=== PATIENT | female | born 1955 | race American Indian/Alaskan Native ===

== ENCOUNTER 2020-11-03 13:02 | Emergency (ER) | payer SELFPAY ==
--- NOTE | 2020-11-03 14:52 | Emergency Department Report ---
<STEPHANIE LOCK S - Last Filed: 11/03/20 18:57> ED General Adult HPI - General Chief complaint: Abdominal Pain Stated complaint: ABD PAIN X 10 DAYS Time Seen by Provider: 11/03/20 13:52 - Related Data Previous Rx's Medication Instructions Recorded Last Taken Type Acetaminophen [Non-Aspirin Extra 500 mg PO Q6HR PRN #30 tablet 11/03/20 Unknown Rx Strength] Metoclopramide [Reglan] 10 mg PO QID PRN #30 tablet 11/03/20 Unknown Rx Omeprazole 20 mg PO QDAY #30 tablet. 11/03/20 Unknown Rx Potassium Chloride [K-Dur] 20 meq PO BID #30 tab 11/03/20 Unknown Rx levoFLOXacin [Levaquin] 750 mg PO QDAY #7 tablet 11/03/20 Unknown Rx polyethylene glycoL 3350 [Miralax 17 gm PO QDAY #30 packet 11/03/20 Unknown Rx 3350] Allergies Allergy/AdvReac Type Severity Reaction Status Date / Time No Known Allergies Allergy Unverified 11/03/20 15:07 ED Past Medical Hx - Medications Home Medications: Home Medications Medication Instructions Recorded Confirmed Last Taken Type Acetaminophen [Non-Aspirin Extra 500 mg PO Q6HR PRN #30 tablet 11/03/20 Unknown Rx Strength] Metoclopramide [Reglan] 10 mg PO QID PRN #30 tablet 11/03/20 Unknown Rx Omeprazole 20 mg PO QDAY #30 tablet. 11/03/20 Unknown Rx Potassium Chloride [K-Dur] 20 meq PO BID #30 tab 11/03/20 Unknown Rx levoFLOXacin [Levaquin] 750 mg PO QDAY #7 tablet 11/03/20 Unknown Rx polyethylene glycoL 3350 [Miralax 17 gm PO QDAY #30 packet 11/03/20 Unknown Rx 3350] ED Medical Decision Making - Lab Data Result diagrams: 11/03/20 15:14 11/03/20 15:14 - Radiology Data Radiology results: report reviewed CT ABDOMEN AND PELVIS WITH CONTRAST INDICATION / CLINICAL INFORMATION: acute abd pain 100 ML OMNI 300. TECHNIQUE: Axial CT images were obtained through the a bdomen and pelvis after IV contrast. All CT scans at this location are performed using CT dose reduction for ALARA by means of automated exposure control. COMPARISON: None available. FINDINGS: LOWER CHEST: There is a masslike consolidation in the left lower lobe abutting the pleura measuring 4.3 x 4.3 cm LIVER: Hepatic steatosis without focal liver lesion. GALLBLADDER: Cholecystectomy. BILE DUCTS: Mild intrahepatic ductal dilation is likely secondary to cholecystectomy changes PANCREAS: There is mild stranding around the pancreatic head in the region of the duodenal sweep. SPLEEN: No significant abnormality. ADRENALS: No significant abnormality. RIGHT KIDNEY / URETER: Simple cyst at right upper pole measuring 2 cm. There is a nonobstructing 3 mm stone in the midportion of the right kidney. LEFT KIDNEY / URETER: Simple cyst at left upper pole measuring 1.4 cm STOMACH / SMALL BOWEL: The stomach appears normal. There is mild stranding around the second portion of duodenum. The small bowel is nondilated. COLON: No significant abnormality. APPENDIX: No significant abnormality. PERITONEUM: Trace free fluid in the pelvis. No free air. No fluid collection. LYMPH NODES: No significant adenopathy. AORTA / ARTERIES: Moderate atherosclerotic calcification without acute abnormality. IVC / VEINS: No significant abnormality. URINARY BLADDER: No significant abnormality. REPRODUCTIVE ORGANS: Uterus is absent. No significant adnexal abnormality. ADDITIONAL FINDINGS: Hernia repair changes of the lower midline abdomen. SKELETAL SYSTEM: Left femoral dominick with healed deformity of the proximal left femur. No aggressive osseous lesion. IMPRESSION: 1. Stranding around the pancreatic head and second portion of the duodenum. This could either represent duodenitis or mild pancreatitis. Recommend clinical correlation. No evidence of free air. 2. Incidental left lower lobe masslike consolidation. While this may represent atypical pneumonia, a neoplasm cannot be excluded. Recommend further evaluation as clinically indicated. 3. Punctate nonobstructing stone in the right kidney. 4. Other incidental findings as above. - Medical Decision Making I was signed out this patient by my colleague, Dr. Duggan, to follow-up on the patient's CT of the abdomen and pelvis as well as her urinalysis. The patient comes in with a 4 to 5-day history of some cramping abdominal pain. Labs are reviewed and are mostly unremarkable except for very mild hypokalemia. Ur inalysis came back without signs of urinary tract infection, hematuria, signs of dehydration. I was called by the radiologist regarding the patient's CT results. There is some inflammation seen around the head of the pancreas and/or second portion of the duodenum concerning for mild pancreatitis versus duodenitis. The patient's lipase is seventeen and therefore it appears less likely to be acute pancreatitis, although possibly it could be early pancreatitis without lipase elevation yet. More likely, the patient has some duodenitis. There was also an incidental finding in the left lower lung of some type of consolidation that is concerning for atypical pneumonia versus mass versus other. The patient has no complaints of any chest pain, back pain, shortness of breath, cough. She does not have any fever. Labs did not show any leukocytosis. The patient does not appear in any respiratory or acute distress. She does not appear to have any medical condition that requires admission or surgical intervention. Therefore, the patient will be discharged home with the previous discharge prescriptions written by my colleague, as well as but I have also added a PPI and antibiotics. The patient will be given outpatient referral for gastroenterology regarding her abdominal pain and possible duodenitis, and a referral for pulmonology regarding this left lung consolidation. I spoke to the patient regarding all of her lab and imaging results, as well as the plan for outpatient follow-up, and she understands and agrees to the plan. ED Disposition Clinical Impression: Acute abdominal pain, Lung consolidation, Elevated blood pressure reading, Hypokalemia, Duodenitis Disposition: DC-01 TO HOME OR SELFCARE Is pt being admited?: No Condition: Good Instructions: Lung Mass, Abdominal Pain, Adult, Duodenitis, Community-Acquired Pneumonia, Adult, Hypertension, Adult, Abdominal Pain (ED) Additional Instructions: Please take the pain medication, nausea medication, and MiraLAX as directed. Take the potassium supplementation as directed. Please do not take them for medication for the next 2 days, if patient takes this medication. Please follow-up with your primary care doctor within the next 5 to 7 days for repeat checkup and evaluation. Please have a primary care doctor contact medical records department to follow-up on copies of laboratory studies, radiology studies. Please drink 4 to 6 cups of water per day indefinitely. Please consume plenty of fiber, vegetables, and lean protein. Please return to the emergency room right away with new pain, worsened pain, migration of pain, projectile vomiting, change in mental status, confusion, inability to tolerate liquid feeds, new, worsened or different symptoms not present on the initial emergency room evaluation. I have given you a referral for [facility] to follow-up regarding the CT findings of duodenitis and your abdominal pain. I have given you a referral for a local firmware software verification engineer, Dr. Booth, to follow-up regarding the incidental CT findings of a left lung consolidation. I am starting you on an antibiotic, but you will need to follow-up with the firmware software verification engineer to further evaluate whether this is an atypical pneumonia versus a mass versus other. Prescriptions: Potassium Chloride [K-Dur] 20 meq PO BID #30 tab levoFLOXacin [Levaquin] 750 mg PO QDAY #7 tablet polyethylene glycoL 3350 [Miralax 3350] 17 gm PO QDAY #30 packet Acetaminophen [Non-Aspirin Extra Strength] 500 mg PO Q6HR PRN #30 tablet PRN Reason: Pain , Severe (7-10) Omeprazole 20 mg PO QDAY #30 tablet. Metoclopramide [Reglan] 10 mg PO QID PRN #30 tablet PRN Reason: Nausea Referrals: [facility] [Provider Group] - 3-5 Days [facility] [Provider Group] - 3-5 Days SANIYA DE LA CRUZ MD [Staff Physician] - 3-5 Days ROB BOOTH MD [Staff Physician] - 3-5 Days <SIMONE DUGGAN - Last Filed: 11/07/20 12:01> ED General Adult HPI - General PUI?: No Source: patient, RN notes reviewed Mode of arrival: Ambulatory Limitations: Physical Limitation - History of Present Illness Initial comments: This is a 65-year-old female. This patient is not known to myself previously. She does not have a local primary care doctor. She may have a history of hypertension. She also has a history of body mass index of 53.9. Surgical history includes total abdominal hysterectomy, hernia repair in the distant past. She presents to the ER today with complaint of diffuse abdominal cramping. She has no Covid symptoms, denies headache, neck pain, chest pain, shortness of breath and urinary symptoms. She thinks she is constipated. She is having 1 bowel movement per day. Abdominal cramping is diffuse, throbbing, increases with palpation and decreases with rest. Patient reports that she has 1 bowel movement per day. This is unusual for her. She is not sure if she is passing gas or flatus. She is coming in today because the pain and cramping are getting worse. -: Gradual, days(s) (10) Location: abdomen Consistency: intermittent Improves with: none Worsens with: movement ED Review of Systems ROS: Stated complaint: ABD PAIN X 10 DAYS Other details as noted in HPI Constitutional: denies: fever Eyes: denies: eye discharge ENT: denies: epistaxis Respiratory: denies: cough Cardiovascular: denies: chest pain Gastrointestinal: abdominal pain, constipation. denies: nausea, vomiting, hematemesis, melena, hematochezia Genitourinary: denies: dysuria Musculoskeletal: arthralgia, myalgia, other (Chronic myalgia and arthralgia). denies: back pain ED Physical Exam - General Limitations: No Limitations General appearance: alert, anxious, in distress, obese - Head Head exam: Present: atraumatic, normocephalic - Eye Eye exam: Present: normal appearance, EOMI. Absent: nystagmus - ENT ENT exam: Present: normal exam, normal orophraynx, mucous membranes moist, normal external ear exam - Neck Neck exam: Present: normal inspection, full ROM. Absent: tenderness, meningismus - Respiratory Respiratory exam: Present: normal lung sounds bilaterally. Absent: respiratory distress, wheezes, rales, rhonchi, stridor, accessory muscle use - Cardiovascular Cardiovascular Exam: Present: normal rhythm, tachycardia, normal heart sounds. Absent: bradycardia, irregular rhythm, systolic murmur, diastolic murmur, rubs, gallop - GI/Abdominal GI/Abdominal exam: Present: soft, distended, tenderness. Absent: guarding, rebound, rigid, pulsatile mass - Extremities Exam Extremities exam: Present: normal inspection, full ROM, pedal edema (Patient has chronic edema in her bilateral lower extremities.), other (2+ pulses noted in the bilateral upper and lower extremities. There is no palpable cord. negative Homans sign. Muscular compartments are soft. The pelvis is stable.). Absent: calf tenderness - Back Exam Back exam: Present: normal inspection. Absent: tenderness, CVA tenderness (R), CVA tenderness (L), paraspinal tenderness, vertebral tenderness - Neurological Exam Neurological exam: Present: alert, oriented X3, other (No facial droop. Tongue midline. Extraocular movements intact bilaterally. Facial sensation intact to light touch in V1, V2, V3 distribution bilaterally. 5 and a 5 strength in 4 extremities. Sensation intact to light touch in 4 extremities.). Absent: motor sensory deficit - Psychiatric Psychiatric exam: Present: anxious - Skin Skin exam: Present: warm, dry, intact, normal color. Absent: rash ED Course Vital Signs 11/03/20 11/03/20 11/03/20 13:10 13:52 14:00 Temperature 98.2 F Pulse Rate 103 H 99 H Respiratory 20 13 Rate Blood Pressure 197/76 136/81 Blood Pressure 215/84 [Right] O2 Sat by Pulse 97 98 Oximetry 11/03/20 11/03/20 11/03/20 14:16 14:30 14:46 Temperature Pulse Rate 96 H 97 H 92 H Respiratory 21 22 17 Rate Blood Pressure 136/81 183/71 183/71 Blood Pressure [Right] O2 Sat by Pulse 97 97 98 Oximetry 11/03/20 11/03/20 11/03/20 15:00 15:46 19:25 Temperature Pulse Rate 97 H 102 H Respiratory 19 16 16 Rate Blood Pressure 180/77 Blood Pressure [Right] O2 Sat by Pulse 98 97 Oximetry - Reevaluation(s) Reevaluation #1: 11/03/20 15:58 Differential diagnosis, including but not limited to: Constipation, obstruction, appendicitis, colitis, diverticulitis, renal colic, urinary tract infection, chronic elevated blood pressure, BMI 53.9 Assessment and plan: 64-year-old female with abdominal pain, and decreased stool. I am suspicious for constipation, but given advanced age, surgical history, abdominal tenderness, we will treat her symptoms, and obtain CT scan of the abdomen pelvis. Urinalysis is pending. We will replete the patient's potassium. Care will be signed out to the oncoming ER physician to follow-up on urinalysis, CT scan of the abdomen pelvis, and arrange final disposition. I discussed this plan of care with the patient, who had articulated cristi diaz. Elevated blood pressure, BMI 53.9 appear to be chronic. She can follow-up with an outpatient primary care doctor for this, if no acute medical conditions identified today. ED Medical Decision Making - Lab Data Result diagrams: 11/03/20 15:14 11/03/20 15:14 Vital Signs 11/03/20 11/03/20 11/03/20 13:10 13:52 14:00 Temperature 98.2 F Pulse Rate 103 H 99 H Respiratory 20 13 Rate Blood Pressure 197/76 136/81 Blood Pressure 215/84 [Right] O2 Sat by Pulse 97 98 Oximetry 11/03/20 11/03/20 11/03/20 14:16 14:30 14:46 Temperature Pulse Rate 96 H 97 H 92 H Respiratory 21 22 17 Rate Blood Pressure 136/81 183/71 183/71 Blood Pressure [Right] O2 Sat by Pulse 97 97 98 Oximetry 11/03/20 11/03/20 15:00 15:46 Temperature Pulse Rate 97 H Respiratory 19 16 Rate Blood Pressure 180/77 Blood Pressure [Right] O2 Sat by Pulse 98 Oximetry Lab Results 11/03/20 11/03/20 11/03/20 Range/Units 15:14 15:14 15:14 WBC 9.1 (4.5-11.0) K/mm3 RBC 5.26 H (3.65-5.03) M/mm3 Hgb 16.1 H (10.1-14.3) gm/dl Hct 48.8 H (30.3-42.9) % MCV 93 (79-97) fl MCH 31 (28-32) pg MCHC 33 (30-34) % RDW 14.8 (13.2-15.2) % Plt Count 205 (140-440) K/mm3 PT 13.5 (12.2-14.9) Sec. INR 0.98 (0.87-1.13) Sodium 140 (137-145) mmol/L Potassium 3.4 L (3.6-5.0) mmol/L Chloride 101.1 (98-107) mmol/L Carbon Dioxide 26 (22-30) mmol/L Anion Gap 16 mmol/L BUN 10 (7-17) mg/dL Creatinine 0.5 L (0.6-1.2) mg/dL Estimated GFR > 60 ml/min BUN/Creatinine Ratio 20 % Glucose 90 (65-100) mg/dL Calcium 8.9 (8.4-10.2) mg/dL Magnesium (1.7-2.3) mg/dL Total Bilirubin 0.30 (0.1-1.2) mg/dL Direct Bilirubin < 0.2 (0-0.2) mg/dL Indirect Bilirubin 0.1 mg/dL AST 21 (5-40) units/L ALT 32 (7-56) units/L Alkaline Phosphatase 101 (35-129) units/L Total Creatine Kinase (30-135) units/L Total Protein 7.5 (6.3-8.2) g/dL Albumin 3.7 L (3.9-5) g/dL Albumin/Globulin Ratio 1.0 % Lipase 17 (13-60) units/L 11/03/20 Range/Units 15:14 WBC (4.5-11.0) K/mm3 RBC (3.65-5.03) M/mm3 Hgb (10.1-14.3) gm/dl Hct (30.3-42.9) % MCV (79-97) fl MCH (28-32) pg MCHC (30-34) % RDW (13.2-15.2) % Plt Count (140-440) K/mm3 PT (12.2-14.9) Sec. INR (0.87-1.13) Sodium (137-145) mmol/L Potassium (3.6-5.0) mmol/L Chloride (98-107) mmol/L Carbon Dioxide (22-30) mmol/L Anion Gap mmol/L BUN (7-17) mg/dL Creatinine (0.6-1.2) mg/dL Estimated GFR ml/min BUN/Creatinine Ratio % Glucose (65-100) mg/dL Calcium (8.4-10.2) mg/dL Magnesium 1.80 (1.7-2.3) mg/dL Total Bilirubin (0.1-1.2) mg/dL Direct Bilirubin (0-0.2) mg/dL Indirect Bilirubin mg/dL AST (5-40) units/L ALT (7-56) units/L Alkaline Phosphatase (35-129) units/L Total Creatine Kinase 30 (30-135) units/L Total Protein (6.3-8.2) g/dL Albumin (3.9-5) g/dL Albumin/Globulin Ratio % Lipase (13-60) units/L - EKG Data -: EKG Interpreted by Tn EKG shows normal: sinus rhythm Rate: tachycardia - EKG Data 11/03/20 15:58 EKG interpreted at 14: 12 Sinus rhythm, tachycardia, rate 95 bpm. Borderline left ventricular hypertrophy, QTC 448 ms, there is no prior EKG available for comparison. This EKG is not a STEMI. There is no prior EKG available for comparison. - Radiology Data Radiology results: pending, report reviewed, image reviewed [facility] [address] [place] [address] Cat Scan Report Signed Patient: ROSEMARIE PIPER MR#: [id number] : 1955 Acct:[id number] Age/Sex: 65 / F ADM Date: 11/03/20 Loc: ED Attending Dr: Ordering Physician: SIMONE DUGGAN MD Date of Service: 11/03/20 Procedure(s): CT abdomen pelvis w con Accession Number(s): [id number] cc: SIMONE DUGGAN MD CT ABDOMEN AND PELVIS WITH CONTRAST INDICATION / CLINICAL INFORMATION: acute abd pain 100 ML OMNI 300. TECHNIQUE: Axial CT images were obtained through the abdomen and pelvis after IV contrast. All CT scans at this location are performed using CT dose reduction for ALARA by means of automated exposure control. COMPARISON: None available. FINDINGS: LOWER CHEST: There is a masslike consolidation in the left lower lobe abutting the pleura measuring 4.3 x 4.3 cm LIVER: Hepatic steatosis without focal liver lesion. GALLBLADDER: Cholecystectomy. BILE DUCTS: Mild intrahepatic ductal dilation is likely secondary to cholecystectomy changes PANCREAS: There is mild stranding around the pancreatic head in the region of the duodenal sweep. SPLEEN: No significant abnormality. ADRENALS: No significant abnormality. RIGHT KIDNEY / URETER: Simple cyst at right upper pole measuring 2 cm. There is a nonobstructing 3 mm stone in the midportion of the right kidney. LEFT KIDNEY / URETER: Simple cyst at left upper pole measuring 1.4 cm STOMACH / SMALL BOWEL: The stomach appears normal. There is mild stranding around the second portion of duodenum. The small bowel is nondilated. COLON: No significant abnormality. APPENDIX: No significant abnormality. PERITONEUM: Trace free fluid in the pelvis. No free air. No fluid collection. LYMPH NODES: No significant adenopathy. AORTA / ARTERIES: Moderate atherosclerotic calcification without acute abnormality. IVC / VEINS: No sign ificant abnormality. URINARY BLADDER: No significant abnormality. REPRODUCTIVE ORGANS: Uterus is absent. No significant adnexal abnormality. ADDITIONAL FINDINGS: Hernia repair changes of the lower midline abdomen. SKELETAL SYSTEM: Left femoral dominick with healed deformity of the proximal left femur. No aggressive osseous lesion. IMPRESSION: 1. Stranding around the pancreatic head and second portion of the duodenum. This could either represent duodenitis or mild pancreatitis. Recommend clinical correlation. No evidence of free air. 2. Incidental left lower lobe masslike consolidation. While this may represent atypical pneumonia, a neoplasm cannot be excluded. Recommend further evaluation as clinically indicated. 3. Punctate nonobstructing stone in the right kidney. 4. Other incidental findings as above. IMPORTANT FINDING Time of Communication (CREDIT PRODUCTS OFFICER/CDT): 4:50 PM Licensed Practitioner Receiving Report: Stephanie Lock M.D. Signer Name: Hi Oleary MD Signed: 11/03/2020 5:53 PM Workstation Name: [id number] Transcribed By: DB Dictated By: HI OLEARY MD Electronically Authenticated By: HI OLEARY MD Signed Date/Time: 11/03/201752 DD/ 36 Critical care attestation.: If time is entered above; I have spent that time in minutes in the direct care of this critically ill patient, excluding procedure time. ED Disposition Is pt being admited?: No Does the pt Need Aspirin: No
[2020-11-03 15:05] VITALS: BP 180/77
[2020-11-03 15:39] LABS: Hematocrit 48.8 % (30.3-42.9); Hemoglobin 16.1 gm/dl (10.1-14.3); Mean Corpuscular HGB Conc 33 % (30-34); Mean Corpuscular Volume 93 fl (79-97); Platelet Count 205 K/mm3 (140-440); Red Blood Count 5.26 M/mm3 (3.65-5.03); Red Cell Distribution Width 14.8 % (13.2-15.2)
[2020-11-03] MEDS ORDERED: SODIUM CHLORIDE 0.9% 1000 ML 1,000 ML IV ONE (15:39)
[2020-11-03 15:50] LABS: INR 0.98 (0.87-1.13)
[2020-11-03 15:52] LABS: Alanine Aminotransferase 32 units/L (7-56); Albumin 3.7 g/dL (3.9-5); BUN/Creatinine Ratio 20; Bilirubin,Direct < 0.2 mg/dL (0-0.2); Blood Urea Nitrogen 10 mg/dL (7-17); Calcium 8.9 mg/dL (8.4-10.2); Hemolysis Index 20
[2020-11-03] MEDS ORDERED: POTASSIUM CHLORIDE ER 20 MEQ TAB PO ONE (15:55)
[2020-11-03] MEDS ORDERED: POTASSIUM CHLORIDE 10 MEQ 10 MEQ/100 ML BAG IV ONE (15:55)
[2020-11-03] MEDS ORDERED: MORPHINE 4 MG/1 ML INJ IV ONE (16:00)
[2020-11-03] MEDS ORDERED: ONDANSETRON 4 MG/2 ML INJ IV ONE (16:40)
--- NOTE | 2020-11-03 17:57 | Cat Scan Report ---
CT ABDOMEN AND PELVIS WITH CONTRAST INDICATION / CLINICAL INFORMATION: acute abd pain 100 ML OMNI 300. TECHNIQUE: Axial CT images were obtained through the abdomen and pelvis after IV contrast. All CT sc ans at this location are performed using CT dose reduction for ALARA by means of automated exposure c ontrol. COMPARISON: None available. FINDINGS: LOWER CHEST: There is a masslike consolidation in the left lower lobe abutting the pleura measuring 4 .3 x 4.3 cm LIVER: Hepatic steatosis without focal liver lesion. GALLBLADDER: Cholecystectomy. BILE DUCTS: Mild intrahepatic ductal dilation is likely secondary to cholecystectomy changes PANCREAS: There is mild stranding around the pancreatic head in the region of the duodenal sweep. SPLEEN: No significant abnormality. ADRENALS: No significant abnormality. RIGHT KIDNEY / URETER: Simple cyst at right upper pole measuring 2 cm. There is a nonobstructing 3 mm stone in the midportion of the right kidney. LEFT KIDNEY / URETER: Simple cyst at left upper pole measuring 1.4 cm STOMACH / SMALL BOWEL: The stomach appears normal. There is mild stranding around the second portion of duodenum. The small bowel is nondilated. COLON: No significant abnormality. APPENDIX: No significant abnormality. PERITONEUM: Trace free fluid in the pelvis. No free air. No fluid collection. LYMPH NODES: No significant adenopathy. AORTA / ARTERIES: Moderate atherosclerotic calcification without acute abnormality. IVC / VEINS: No significant abnormality. URINARY BLADDER: No significant abnormality. REPRODUCTIVE ORGANS: Uterus is absent. No significant adnexal abnormality. ADDITIONAL FINDINGS: Hernia repair changes of the lower midline abdomen. SKELETAL SYSTEM: Left femoral dominick with healed deformity of the proximal left femur. No aggressive oss eous lesion. IMPRESSION: 1. Stranding around the pancreatic head and second portion of the duodenum. This could either represe nt duodenitis or mild pancreatitis. Recommend clinical correlation. No evidence of free air. 2. Incidental left lower lobe masslike consolidation. While this may represent atypical pneumonia, a neoplasm cannot be excluded. Recommend further evaluation as clinically indicated. 3. Punctate nonobstructing stone in the right kidney. 4. Other incidental findings as above. IMPORTANT FINDING Time of Communication (FOOD SERVICE REPRESENTATIVE/CDT): 4:50 PM Licensed Practitioner Receiving Report: Davis Lock M.D. Signer Name: Hi Oleary MD Signed: 11/03/2020 5:53 PM Workstation Name: [email or web address]
[2020-11-03 18:43] LABS: Bilirubin,Urine NEG (Negative); Blood,Urine NEG (Negative); Color,Urine Yellow (Yellow); Mucus,Urine FEW /HPF; Protein,Urine <15 mg/dL mg/dL (Negative); Urobilinogen,Urine < 2.0 mg/dL (<2.0)
== END 2020-11-04 02:49 | disposition home or self-care (01) ==
LOC: ED 13:02
DX: K29.80 Duodenitis without bleeding (principal); J18.1 Lobar pneumonia, unspecified organism; E87.6 Hypokalemia; R03.0 Elevated blood-pressure reading, without diagnosis of hypertension; R10.9 Unspecified abdominal pain; Z79.899 Other long term (current) drug therapy
CPT/HCPCS: 36415; 74177; 80048; 80076; 81001; 82550; 83690; 83735; 85027; 85610; 96361; 96365; 96375; 99284; J2270; J2405; J3480; J7030; Q9967

== ENCOUNTER 2020-11-18 21:59 | Inpatient (IN) | payer OTHER, SELFPAY ==
--- NOTE | 2020-11-18 22:20 | Emergency Department Report ---
ED Shortness of Breath HPI - General Stated Complaint: COVID+ Time Seen by Provider: 11/18/20 22:06 - History of Present Illness Initial Comments: 65-year-old female, history of hypertension, presents to ED with shortness of breath, possible COVID-19. Patient states her son, who lives with her, is currently in our ICU, intubated, with COVID-19. Patient states 6 days ago, she began having fever, headache, cough, shortness of breath, vomiting, diarrhea, loss of smell and taste. Patient did not receive COVID-19 vaccine. O2 sat 89% on room air. MD Complaint: shortness of breath, cough -: days(s) (6) Severity: moderate Consistency: constant Improves With: nothing Worsens With: nothing Context: recent URI Associated Symptoms: fever, cough Treatments Prior to Arrival: none - Related Data Home Oxygen Therapy: No Previous Rx's Medication Instructions Recorded Last Taken Type Acetaminophen [Non-Aspirin Extra 500 mg PO Q6HR PRN #30 tablet 11/03/20 Unknown Rx Strength] Metoclopramide [Reglan] 10 mg PO QID PRN #30 tablet 11/03/20 Unknown Rx Omeprazole 20 mg PO QDAY #30 tablet. 11/03/20 Unknown Rx Potassium Chloride [K-Dur] 20 meq PO BID #30 tab 11/03/20 Unknown Rx levoFLOXacin [Levaquin] 750 mg PO QDAY #7 tablet 11/03/20 Unknown Rx polyethylene glycoL 3350 [Miralax 17 gm PO QDAY #30 packet 11/03/20 Unknown Rx 3350] Allergies Allergy/AdvReac Type Severity Reaction Status Date / Time LEONA Inhibitors AdvReac Unknown Verified 11/18/20 22:32 ED Review of Systems ROS: Stated complaint: COVID+ Other details as noted in HPI Comment: All other systems reviewed and negative Constitutional: fever ENT: other (Reports loss of smell and taste) Gastrointestinal: nausea, vomiting, diarrhea Neurological: headache ED Past Medical Hx - Medications Home Medications: Home Medications Medication Instructions Recorded Confirmed Last Taken Type Acetaminophen [Non-Aspirin Extra 500 mg PO Q6HR PRN #30 tablet 11/03/20 Unknown Rx Strength] Metoclopramide [Reglan] 10 mg PO QID PRN #30 tablet 11/03/20 Unknown Rx Omeprazole 20 mg PO QDAY #30 tablet. 11/03/20 Unknown Rx Potassium Chloride [K-Dur] 20 meq PO BID #30 tab 11/03/20 Unknown Rx levoFLOXacin [Levaquin] 750 mg PO QDAY #7 tablet 11/03/20 Unknown Rx polyethylene glycoL 3350 [Miralax 17 gm PO QDAY #30 packet 11/03/20 Unknown Rx 3350] ED Physical Exam - General General appearance: alert, in no apparent distress, obese - Head Head exam: Present: atraumatic, normocephalic - Eye Eye exam: Present: normal appearance, EOMI - ENT ENT exam: Present: mucous membranes moist - Neck Neck exam: Present: normal inspection - Respiratory Respiratory exam: Present: normal lung sounds bilaterally - Cardiovascular Cardiovascular Exam: Present: regular rate, normal rhythm - GI/Abdominal GI/Abdominal exam: Absent: distended - Extremities Exam Extremities exam: Present: normal inspection - Neurological Exam Neurological exam: Present: alert, oriented X3 - Psychiatric Psychiatric exam: Present: normal affect, normal mood - Skin Skin exam: Present: warm, dry, intact, normal color ED Course Vital Signs 11/18/20 11/18/20 11/18/20 22:29 22:31 22:33 Temperature 100.8 F H Pulse Rate 115 H Pulse Rate [ Bilateral] Respiratory 24 Rate Respiratory Rate [Bilateral ] Blood Pressure 155/86 [Left] O2 Sat by Pulse 95 90 95 Oximetry 11/19/20 11/19/20 03:31 03:56 Temperature 98.6 F Pulse Rate 94 H Pulse Rate [ 100 H Bilateral] Respiratory 22 Rate Respiratory 18 Rate [Bilateral ] Blood Pressure 162/84 [Left] O2 Sat by Pulse 96 Oximetry ED Medical Decision Making - Lab Data Result diagrams: 11/18/20 23:31 11/18/20 23:31 - Radiology Data Radiology results: report reviewed, image reviewed - Medical Decision Making 65-year-old female with possible Covid pneumonia. Son tested positive for COVID-19 and is currently in the ICU intubated. Patient has O2 sats of 89% on room air. Chest x-ray shows bilateral pneumonia. She is currently on 4 L O2. Patient given Rocephin, azithromycin, Decadron here in the ED. She will be admitted by hospitalist for further management. - Differential Diagnosis Pneumonia, COVID-19 Critical Care Time: Yes Critical care time in (mins) excluding proc time.: 35 Critical care attestation.: If time is entered above; I have spent that time in minutes in the direct care of this critically ill patient, excluding procedure time. Critical Care Time: 35 min ED Disposition Clinical Impression: Suspected COVID-19 virus infection, Pneumonia, Acute respiratory failure with hypoxia, Sepsis Disposition: OP ADMIT IP TO THIS HOSP Is pt being admited?: Yes Condition: Stable Time of Disposition: 00:34
[2020-11-18] MEDS ORDERED: ACETAMINOPHEN 500 MG TAB PO ONE (22:47)
[2020-11-18] MEDS ORDERED: cefTRIAXone/NS 1 GM/50 ML 1 GM/50 ML BAG IV ONE (22:47)
[2020-11-18] MEDS ORDERED: AZITHROMYCIN 250 MG TAB PO ONE (22:47)
[2020-11-18] MEDS ORDERED: DEXAMETHASONE 4 MG TAB PO ONE (22:47)
--- NOTE | 2020-11-18 22:51 | XRay Report ---
CHEST 1 VIEW 11/18/2020 10:25 PM INDICATION / CLINICAL INFORMATION: sob, COVID+. COMPARISON: None available. FINDINGS: SUPPORT DEVICES: None. HEART / MEDIASTINUM: No significant abnormality. LUNGS / PLEURA: Patchy bilateral pulmonary opacities. No pneumothorax. ADDITIONAL FINDINGS: No significant additional findings. IMPRESSION: 1. Patchy bilateral pneumonia characteristic of atypical/viral pneumonia such as Covid Signer Name: Kelby Herring MD Signed: 11/18/2020 10:47 PM Workstation Name: [id number]
[2020-11-18 23:55] LABS: Basophils % (Auto) 0.3 % (0.0-1.8); Eosinophils % (Auto) 0.2 % (0.0-4.3); Hematocrit 45.8 % (30.3-42.9); Hemoglobin 15.3 gm/dl (10.1-14.3); Lymphocytes # (Auto) 0.7 K/mm3 (1.2-5.4); Lymphocytes % (Auto) 11.7 % (13.4-35.0); Mean Corpuscular HGB Conc 33 % (30-34); Mean Corpuscular Volume 90 fl (79-97); Monocytes # (Auto) 0.6 K/mm3 (0.0-0.8); Monocytes % (Auto) 10.7 % (0.0-7.3); Platelet Count 144 K/mm3 (140-440); Red Blood Count 5.08 M/mm3 (3.65-5.03); Red Cell Distribution Width 15.4 % (13.2-15.2)
[2020-11-19 00:49] LABS: Blood Urea Nitrogen 5 mg/dL (7-17); Calcium 8.4 mg/dL (8.4-10.2); Hemolysis Index 7
[2020-11-19 00:50] LABS: BUN/Creatinine Ratio 8
[2020-11-19 00:53] LABS: Alanine Aminotransferase 28 units/L (7-56); Albumin 3.2 g/dL (3.9-5)
[2020-11-19 00:55] LABS: Bilirubin,Direct < 0.2 mg/dL (0-0.2)
[2020-11-19] MEDS ORDERED: METOCLOPRAMIDE 10 MG/2 ML INJ IV PRN (01:30)
[2020-11-19] MEDS ORDERED: ONDANSETRON 4 MG/2 ML INJ IV PRN (01:30)
[2020-11-19] MEDS ORDERED: ACETAMINOPHEN 325 MG TAB PO PRN (01:30)
[2020-11-19] MEDS ORDERED: ALUM-MAG HYDROXIDE-SIMETHICONE 200-200-20MG/5ML ORAL LIQD 30 ML PO PRN (01:30)
[2020-11-19] MEDS ORDERED: MAGNESIUM HYDROXIDE (MOM) ORAL LIQD UDC PO PRN (01:30)
[2020-11-19] MEDS ORDERED: NALOXONE 0.4 MG/1 ML INJ IV PRN (01:30)
[2020-11-19] MEDS ORDERED: IBUPROFEN 600 MG TAB PO PRN (01:30)
[2020-11-19] MEDS ORDERED: ALBUTEROL 2.5 MG/3 ML NEBU IH PRN (01:30)
[2020-11-19] MEDS ORDERED: SODIUM CHLORIDE 0.9% 1000 ML 1,000 ML IV SCH (01:30)
[2020-11-19] MEDS ORDERED: hydrALAZINE 20 MG/1 ML INJ IV PRN (01:47)
--- NOTE | 2020-11-19 01:47 | History and Physical Report ---
History of Present Illness Date of examination: 11/19/20 Date of admission: 11/19/20 00:34 Chief complaint: Cough malaise weakness Shortness of breath History of present illness: This is a 65-year-old female who came to ED with shortness of breath and persistent cough. Patient has a history of hypertension. Patient reported her son has Covid and is in this hospital intubated in the ICU. she said she started having fever, headache, cough, shortness of breath, vomiting, diarrhea, loss of smell and taste. Patient said she did not receive COVID-19 vaccine. O2 sat 89% on room air. Hospital medicine was asked to admit patient for PUI. ID consulted. Reviewed patient medical record, medication administration, and vital signs. Patient is presently on room air. She reports persistent cough. Past History Past Medical History: hypertension Past Surgical History: appendectomy, cholecystectomy, hysterectomy, Other (Low back strain) Social history: no significant social history, lives with family Family history: no significant family history Medications and Allergies Allergies Allergy/AdvReac Type Severity Reaction Status Date / Time LEONA Inhibitors AdvReac Unknown Verified 11/18/20 22:32 Home Medications Medication Instructions Recorded Confirmed Last Taken Type Acetaminophen [Non-Aspirin Extra 500 mg PO Q6HR PRN #30 tablet 11/03/20 Unknown Rx Strength] Metoclopramide [Reglan] 10 mg PO QID PRN #30 tablet 11/03/20 Unknown Rx Omeprazole 20 mg PO QDAY #30 tablet. 11/03/20 Unknown Rx Potassium Chloride [K-Dur] 20 meq PO BID #30 tab 11/03/20 Unknown Rx levoFLOXacin [Levaquin] 750 mg PO QDAY #7 tablet 11/03/20 Unknown Rx polyethylene glycoL 3350 [Miralax 17 gm PO QDAY #30 packet 11/03/20 Unknown Rx 3350] Active Meds: Active Medications Acetaminophen (Acetaminophen 325 Mg Tab) 650 mg PO Q4H PRN PRN Reason: Pain MILD(1-3)/Fever >100.5/ZHAO Hydrocodone Bitart/Acetaminophen (Hydrocodone/Acetaminophen 5-325 Mg Tab) 2 each PO Q6H PRN PRN Reason: Pain, Moderate (4-6) Al Hydrox/Mg Hydrox/Simethicone (Alum-Mag Hydroxide-Simethicone [phone]/5ml Oral Liqd 30 Ml) 30 ml PO Q4H PRN PRN Reason: Indigestion Albuterol (Albuterol 2.5 Mg/3 Ml Nebu) 2.5 mg IH Q4HRT PRN PRN Reason: Shortness Of Breath Albuterol/Ipratropium (Ipratropium/Albuterol Sulfate 3 Ml Ampul.Neb) 1 ampul IH Q6HRT REPLACED BY [facility] Ascorbic Acid (Ascorbic Acid 500 Mg Tab) 500 mg PO QDAY REPLACED BY [facility] Cholecalciferol (Cholecalciferol (Vit D3) 1000 Unit (25 Mcg) Tab) 1,000 unit PO QDAY REPLACED BY [facility] Dexamethasone (Dexamethasone 4 Mg/Ml Vial) 6 mg IV DAILY REPLACED BY [facility] Famotidine (Famotidine 20 Mg/2 Ml Inj) 20 mg IV BID REPLACED BY [facility] Guaifenesin (Guaifenesin 200 Mg Tab) 200 mg PO Q6H PRN PRN Reason: Cough Sodium Chloride (Nacl 0.9% 1000 Ml) 1,000 mls @ 42 mls/hr IV DIRECT NEO Azithromycin (Zithromax/Ns) 500 mg in 250 mls @ 250 mls/hr IV Q24H REPLACED BY [facility] Ceftriaxone Sodium (Rocephin/Ns 1 Gm/50 Ml) 1 gm in 50 mls @ 100 mls/hr IV Q24H NEO; Protocol Ibuprofen (Ibuprofen 600 Mg Tab) 600 mg PO Q6H PRN PRN Reason: Pain, Mild (1-3) Magnesium Hydroxide (Magnesium Hydroxide (Mom) Oral Liqd Udc) 30 ml PO Q4H PRN PRN Reason: Constipation Metoclopramide HCl (Metoclopramide 10 Mg/2 Ml Inj) 10 mg IV Q6H PRN PRN Reason: Nausea And Vomiting Morphine Sulfate (Morphine 4 Mg/1 Ml Inj) 4 mg IV Q4H PRN PRN Reason: Pain , Severe (7-10) Naloxone HCl (Naloxone 0.4 Mg/1 Ml Inj) 0.1 mg IV Q2MIN PRN PRN Reason: Res Rate </= 8 or 02 SAT < 92% Ondansetron HCl (Ondansetron 4 Mg/2 Ml Inj) 4 mg IV Q8H PRN PRN Reason: Nausea And Vomiting Senna (Sennosides 8.6 Mg Tab) 8.6 mg PO Q12HR REPLACED BY [facility] Sodium Chloride (Sodium Chloride 0.9% 10 Ml Flush Syringe) 10 ml IV BID NEO Zinc Sulfate (Zinc Sulfate 220 Mg Cap) 220 mg PO QDAY NEO Review of Systems Constitutional: weakness, malaise Ears, nose, mouth and throat: no epistaxis, no bleeding gums Cardiovascular: high blood pressure Respiratory: cough, shortness of breath, respiratory infections Gastrointestinal: abdominal pain Rectal: no itching, no hemorrhoids Musculoskeletal: no neck stiffness Integumentary: no rash, no pruritis Psychiatric: anxiety, no suicidal ideation, no disorientation, no hallucinations Hematologic/Lymphatic: no easy bruising, no easy bleeding Allergic/Immunologic: no urticaria Exam - Constitutional Vitals: Temp Pulse Resp BP Pulse Ox 100.8 F H 115 H 24 155/86 95 11/18/20 22:29 11/18/20 22:29 11/18/20 22:29 11/18/20 22:29 11/18/20 22:33 Results - Labs CBC & Chem 7: 11/18/20 23:31 11/18/20 23:31 Labs: Abnormal lab results 11/18/20 11/18/20 11/18/20 Range/Units 23:31 23:31 23:31 RBC 5.08 H (3.65-5.03) M/mm3 Hgb 15.3 H (10.1-14.3) gm/dl Hct 45.8 H (30.3-42.9) % RDW 15.4 H (13.2-15.2) % Lymph % (Auto) 11.7 L (13.4-35.0) % [place] % (Auto) 10.7 H (0.0-7.3) % Lymph # (Auto) 0.7 L (1.2-5.4) K/mm3 Seg Neutrophils % 77.1 H (40.0-70.0) % D-Dimer 559.48 H (0-234) ng/mlDDU Sodium 135 L (137-145) mmol/L Chloride 96.7 L (98-107) mmol/L BUN 5 L (7-17) mg/dL AST (5-40) units/L Albumin (3.9-5) g/dL 11/18/20 Range/Units 23:31 RBC (3.65-5.03) M/mm3 Hgb (10.1-14.3) gm/dl Hct (30.3-42.9) % RDW (13.2-15.2) % Lymph % (Auto) (13.4-35.0) % [place] % (Auto) (0.0-7.3) % Lymph # (Auto) (1.2-5.4) K/mm3 Seg Neutrophils % (40.0-70.0) % D-Dimer (0-234) ng/mlDDU Sodium (137-145) mmol/L Chloride (98-107) mmol/L BUN (7-17) mg/dL AST 49 H (5-40) units/L Albumin 3.2 L (3.9-5) g/dL Assessment and Plan - Patient Problems (1) Acute respiratory failure with hypoxia Current Visit: Yes Status: Acute Plan to address problem: Likely secondary to pneumonia/viral Covid infection Respiratory care, ABG, and chest x-ray Systemic steroid, bronchodilators, and oxygen supplement as needed Checks x-ray shows patchy bilateral pneumonia characteristics of atypical viral pneumonia like Covid (2) Pneumonia Current Visit: Yes Status: Acute Plan to address problem: Likely secondary to Covid infection Continue empiric antibiotics ID consult follow-up with recommendation Checks x-ray shows patchy bilateral pneumonia (3) Suspected COVID-19 virus infection Current Visit: Yes Status: Acute Plan to address problem: Airborne and contact isolation Respiratory care bronchodilator and oxygen as needed Ascorbic acid, zinc sulfate, vitamins D supplement Empiric antibiotic and monitor inflammatory markers ID consulted follow-up with recommendation Encourage prone position and the use of incentive spirometer (4) Hypertension Current Visit: Yes Status: Acute Qualifiers: Hypertension type: primary hypertension Qualified Code(s): I10 - Essential (primary) hypertension Plan to address problem: Better blood pressure Resume home antihypertensive As needed hydralazine (5) DVT prophylaxis Current Visit: Yes Status: Acute Plan to address problem: Lovenox
[2020-11-19] MEDS ORDERED: METOCLOPRAMIDE 10 MG TAB PO PRN (02:04)
[2020-11-19 03:43] LABS: C-Reactive Protein 14.2 mg/dL (0.00-1.30)
[2020-11-19] MEDS: IPRATROPIUM/ALBUTEROL SULFATE 3 ML AMPUL.NEB IH SCH ×4 (03:55→19:32)
--- NOTE | 2020-11-19 07:36 | Event Note ---
Date: 11/19/20 65-year-old with a history of hypertension presents with shortness of breath cough fever, arthralgias myalgias and recent Covid exposure via her son. Initial x-ray show bilateral patchy infiltrates consistent with Covid pneumonia as well as increased inflammatory markers. Currently being treated for person of interest and Covid. Patient initiated on supplemental O2, steroids, empiric antibiotics. Zinc, vitamin C, vitamin D. Stable with current 3 L O2
[2020-11-19] MEDS: dexAMETHasone 4 MG/ML VIAL IV SCH (09:59)
[2020-11-19] MEDS: ENOXAPARIN 40 MG/0.4 ML INJ SUB-Q SCH (10:00)
[2020-11-19] MEDS ORDERED: NON-FORMULARY EACH (Omeprazole [Omeprazole] 20 MG Tablet.Dr) PO SCH (10:00)
[2020-11-19] MEDS ORDERED: FAMOTIDINE 20 MG/2 ML INJ IV SCH (10:00)
[2020-11-19] MEDS: CHOLECALCIFEROL (VIT D3) 1000 UNIT (25 mcg) TAB PO SCH (10:01)
[2020-11-19] MEDS: ASCORBIC ACID 500 MG TAB PO SCH (10:01)
[2020-11-19] MEDS: SENNOSIDES 8.6 MG TAB PO SCH (10:01)
[2020-11-19] MEDS: ZINC SULFATE 220 MG CAP PO SCH (10:02)
[2020-11-19] MEDS: PANTOPRAZOLE 20 MG TAB PO SCH (10:02)
[2020-11-19] MEDS: guaiFENesin/CODEINE 100-10MG ORAL LIQD 5 ML PO PRN ×2 (10:56→22:03)
--- NOTE | 2020-11-19 11:13 | Consultation ---
History of Present Illness - Reason for Consult Consult date: 11/19/20 PUI Requesting physician: MARIANA BRAGG - History of Present Illness The patient is a 65-year-old female with hypertension, admitted to the hospital as COVID-19 PUI. Hypoxic on room air. Unvaccinated for COVID-19. Inflammatory markers found to be elevated. Review of Systems: reviewed in the chart, unable to obtain, minimize risk of transmission Past History Past Medical History: hypertension Past Surgical History: appendectomy, cholecystectomy, hysterectomy, Other (Low b ack strain) Social history: no significant social history, lives with family Family history: no significant family history Medications and Allergies Allergies Allergy/AdvReac Type Severity Reaction Status Date / Time LEONA Inhibitors AdvReac Unknown Verified 11/18/20 22:32 Home Medications Medication Instructions Recorded Confirmed Last Taken Type Acetaminophen [Non-Aspirin Extra 500 mg PO Q6HR PRN #30 tablet 11/03/20 Unknown Rx Strength] Metoclopramide [Reglan] 10 mg PO QID PRN #30 tablet 11/03/20 Unknown Rx Omeprazole 20 mg PO QDAY #30 tablet.dr 11/03/20 Unknown Rx Potassium Chloride [K-Dur] 20 meq PO BID #30 tab 11/03/20 Unknown Rx levoFLOXacin [Levaquin] 750 mg PO QDAY #7 tablet 11/03/20 Unknown Rx polyethylene glycoL 3350 [Miralax 17 gm PO QDAY #30 packet 11/03/20 Unknown Rx 3350] Active Meds: Active Medications Acetaminophen (Acetaminophen 325 Mg Tab) 650 mg PO Q4H PRN PRN Reason: Pain MILD(1-3)/Fever >100.5/ZHAO Hydrocodone Bitart/Acetaminophen (Hydrocodone/Acetaminophen 5-325 Mg Tab) 2 each PO Q6H PRN PRN Reason: Pain, Moderate (4-6) Al Hydrox/Mg Hydrox/Simethicone (Alum-Mag Hydroxide-Simethicone [phone]/5ml Oral Liqd 30 Ml) 30 ml PO Q4H PRN PRN Reason: Indigestion Albuterol (Albuterol 2.5 Mg/3 Ml Nebu) 2.5 mg IH Q4HRT PRN PRN Reason: Shortness Of Breath Albuterol/Ipratropium (Ipratropium/Albuterol Sulfate 3 Ml Ampul.Neb) 1 ampul IH Q6HRT [facility] Last Admin: 11/19/20 08:00 Dose: 1 ampul Documented by: Ascorbic Acid (Ascorbic Acid 500 Mg Tab) 500 mg PO QDAY [facility] Last Admin: 11/19/20 10:01 Dose: 500 mg Documented by: Cholecalciferol (Cholecalciferol (Vit D3) 1000 Unit (25 Mcg) Tab) 1,000 unit PO QDAY [facility] Last Admin: 11/19/20 10:01 Dose: 1,000 unit Documented by: Dexamethasone (Dexamethasone 4 Mg/Ml Vial) 6 mg IV DAILY [facility] Last Admin: 11/19/20 09:59 Dose: 6 mg Documented by: Enoxaparin Sodium (Enoxaparin 40 Mg/0.4 Ml Inj) 40 mg SUB-Q QDAY@1000 NEO; Protocol Last Admin: 11/19/20 10:00 Dose: 40 mg Documented by: Guaifenesin (Guaifenesin 200 Mg Tab) 200 mg PO Q6H PRN PRN Reason: Cough Hydralazine HCl (Hydralazine 20 Mg/1 Ml Inj) 5 mg IV Q4HR PRN PRN Reason: Hypertension Sodium Chloride (Nacl 0.9% 1000 Ml) 1,000 mls @ 42 mls/hr IV DIRECT NEO Azithromycin (Zithromax/Ns) 500 mg in 250 mls @ 250 mls/hr IV Q24H [facility] Ceftriaxone Sodium (Rocephin/Ns 1 Gm/50 Ml) 1 gm in 50 mls @ 100 mls/hr IV Q24H [facility]; Protocol Ibuprofen (Ibuprofen 600 Mg Tab) 600 mg PO Q6H PRN PRN Reason: Pain, Mild (1-3) Magnesium Hydroxide (Magnesium Hydroxide (Mom) Oral Liqd Udc) 30 ml PO Q4H PRN PRN Reason: Constipation Metoclopramide HCl (Metoclopramide 10 Mg/2 Ml Inj) 10 mg IV Q6H PRN PRN Reason: Nausea And Vomiting Metoclopramide HCl (Metoclopramide 10 Mg Tab) 10 mg PO QID PRN PRN Reason: Nausea Morphine Sulfate (Morphine 4 Mg/1 Ml Inj) 4 mg IV Q4H PRN PRN Reason: Pain , Severe (7-10) Naloxone HCl (Naloxone 0.4 Mg/1 Ml Inj) 0.1 mg IV Q2MIN PRN PRN Reason: Res Rate </= 8 or 02 SAT < 92% Ondansetron HCl (Ondansetron 4 Mg/2 Ml Inj) 4 mg IV Q8H PRN PRN Reason: Nausea And Vomiting Pantoprazole Sodium (Pantoprazole 20 Mg Tab) 20 mg PO QDAY [facility] Last Admin: 11/19/20 10:02 Dose: 20 mg Documented by: Pseudoephedrine/Acetam/Chlorphenir (Guaifenesin/Codeine 100-10mg Oral Liqd 5 Ml) 5 ml PO Q4H PRN PRN Reason: Cough Last Admin: 11/19/20 10:56 Dose: 5 ml Documented by: Senna (Sennosides 8.6 Mg Tab) 8.6 mg PO Q12HR [facility] Last Admin: 11/19/20 10:01 Dose: 8.6 mg Documented by: Sodium Chloride (Sodium Chloride 0.9% 10 Ml Flush Syringe) 10 ml IV BID [facility] Last Admin: 11/19/20 10:27 Dose: 10 ml Documented by: Zinc Sulfate (Zinc Sulfate 220 Mg Cap) 220 mg PO QDAY [facility] Last Admin: 11/19/20 10:02 Dose: 220 mg Documented by: Physical Examination - Physical Exam Narrative exam: Physical Exam (reviewed in chart to minimize risk of transmission) Constitutional: deferred Head, Ears, Nose: deferred Eyes: deferred Neck: deferred Oral: deferred Cardiovascular: deferred Respiratory: deferred GI: deferred Musculoskeletal: deferred Skin: deferred Hem/Lymphatic: deferred Psych: deferred Neurological: deferred - Constitutional Vitals: Vital Signs Temp Pulse Resp BP Pulse Ox 98.8 F 99 H 22 131/88 97 11/19/20 06:10 11/19/20 10:31 11/19/20 10:31 11/19/20 10:31 11/19/20 10:31 Temperature -Last 24 Hours Temperature 98.8 F Temperature 98.6 F Temperature 100.8 F Results - Labs CBC & Chem 7: 11/18/20 23:31 11/18/20 23:31 Labs: Abnormal lab results 11/18/20 11/18/20 11/18/20 Range/Units 23:31 23:31 23:31 RBC 5.08 H (3.65-5.03) M/mm3 Hgb 15.3 H (10.1-14.3) gm/dl Hct 45.8 H (30.3-42.9) % RDW 15.4 H (13.2-15.2) % Lymph % (Auto) 11.7 L (13.4-35.0) % [place] % (Auto) 10.7 H (0.0-7.3) % Lymph # (Auto) 0.7 L (1.2-5.4) K/mm3 Seg Neutrophils % 77.1 H (40.0-70.0) % D-Dimer 559.48 H (0-234) ng/mlDDU Sodium 135 L (137-145) mmol/L Chloride 96.7 L (98-107) mmol/L BUN 5 L (7-17) mg/dL Ferritin (10.0-200.0) ng/mL AST (5-40) units/L Lactate Dehydrogenase (91-180) units/L C-Reactive Protein (0.00-1.30) mg/dL Albumin (3.9-5) g/dL 11/18/20 11/18/20 11/18/20 Range/Units 23:31 23:31 23:31 RBC (3.65-5.03) M/mm3 Hgb (10.1-14.3) gm/dl Hct (30.3-42.9) % RDW (13.2-15.2) % Lymph % (Auto) (13.4-35.0) % [place] % (Auto) (0.0-7.3) % Lymph # (Auto) (1.2-5.4) K/mm3 Seg Neutrophils % (40.0-70.0) % D-Dimer (0-234) ng/mlDDU Sodium (137-145) mmol/L Chloride (98-107) mmol/L BUN (7-17) mg/dL Ferritin 1243.0 H (10.0-200.0) ng/mL AST 49 H (5-40) units/L Lactate Dehydrogenase 422 H (91-180) units/L C-Reactive Protein 14.20 H (0.00-1.30) mg/dL Albumin 3.2 L (3.9-5) g/dL - Imaging and Cardiology Chest x-ray: report reviewed, image reviewed (b/l PNA) Assessment and Plan Cultures: SARS CoV2 PCR: Pending Blood culture in process A/P: 65-year-old female admitted as COVID-19 PUI, unvaccinated: #Bilateral pneumonia: High suspicion for COVID-19 #Acute hypoxic respiratory failure: On nasal cannula Recs: IV/PO Dexamethasone 6 mg daily x 10 days If D-dimer is low, discontinue antibiotics If COVID-19 PCR is positive, start remdesivir prophylactic anticoagulation based on d-dimer per hospital protocol trend ferritin, LDH, d-dimer, CRP every 2-3 days for risk stratification and to assess disease progression Robert Villaseñor MD, FACP [facility] ([facility] O: [phone] F: [phone]
[2020-11-19] MEDS: cefTRIAXone/NS 1 GM/50 ML 1 GM/50 ML BAG IV SCH (21:49)
[2020-11-19] MEDS: MORPHINE 4 MG/1 ML INJ IV PRN (21:52)
[2020-11-19] MEDS: AZITHROMYCIN/NS 500 MG/250 ML 500 MG/250 ML BAG IV SCH (23:48)
[2020-11-20] MEDS: SENNOSIDES 8.6 MG TAB PO SCH ×3 (00:24→22:42)
[2020-11-20] MEDS: guaiFENesin 200 MG TAB PO PRN ×2 (00:29→13:57)
[2020-11-20] MEDS: HYDROcodone/ACETAMINOPHEN 5-325 MG TAB PO PRN ×2 (00:29→15:52)
[2020-11-20] MEDS: IPRATROPIUM/ALBUTEROL SULFATE 3 ML AMPUL.NEB IH SCH ×3 (02:16→15:31)
[2020-11-20] MEDS: MORPHINE 4 MG/1 ML INJ IV PRN (04:48)
[2020-11-20] MEDS ORDERED: REMDESIVIR 200 MG in SODIUM CHLORIDE 0.9% 250ML 250 ML IV ONE (05:49)
[2020-11-20 06:18] LABS: Basophils % (Auto) 0.1 % (0.0-1.8); Hematocrit 44.9 % (30.3-42.9); Lymphocytes # (Auto) 0.7 K/mm3 (1.2-5.4); Lymphocytes % (Auto) 7.8 % (13.4-35.0); Mean Corpuscular HGB Conc 33 % (30-34); Mean Corpuscular Volume 91 fl (79-97); Monocytes % (Auto) 10.1 % (0.0-7.3); Platelet Count 186 K/mm3 (140-440); Red Blood Count 4.95 M/mm3 (3.65-5.03); Red Cell Distribution Width 15.1 % (13.2-15.2)
[2020-11-20] MEDS: guaiFENesin/CODEINE 100-10MG ORAL LIQD 5 ML PO PRN (06:41)
[2020-11-20 06:42] LABS: Alanine Aminotransferase 23 units/L (7-56); Albumin 3.6 g/dL (3.9-5); Blood Urea Nitrogen 10 mg/dL (7-17); Calcium 9.4 mg/dL (8.4-10.2); Hemolysis Index 15
[2020-11-20 06:50] LABS: BUN/Creatinine Ratio 20
[2020-11-20] MEDS: SODIUM CHLORIDE 0.9% 50 ML IVPB IV SCH (07:43)
[2020-11-20] MEDS ORDERED: diphenhydrAMINE 50 MG CAP PO STA (08:08)
[2020-11-20] MEDS ORDERED: diphenhydrAMINE 25 MG CAP PO SCH (08:30)
[2020-11-20] MEDS: ZINC SULFATE 220 MG CAP PO SCH (11:56)
[2020-11-20] MEDS: PANTOPRAZOLE 20 MG TAB PO SCH (11:56)
[2020-11-20] MEDS: ENOXAPARIN 40 MG/0.4 ML INJ SUB-Q SCH (11:57)
[2020-11-20] MEDS: dexAMETHasone 4 MG/ML VIAL IV SCH (11:57)
[2020-11-20] MEDS: ASCORBIC ACID 500 MG TAB PO SCH (12:26)
[2020-11-20] MEDS: CHOLECALCIFEROL (VIT D3) 1000 UNIT (25 mcg) TAB PO SCH (12:27)
--- NOTE | 2020-11-20 12:27 | Progress Note ---
Assessment and Plan Assessment and plan: This is a 65-year-old female who came to ED with shortness of breath and persistent cough. Patient has a history of hypertension. Patient reported her son has Covid and is in this hospital intubated in the ICU. she said she started having fever, headache, cough, shortness of breath, vomiting, diarrhea, loss of smell and taste. Patient said she did not receive COVID-19 vaccine. O2 sat 89% on room air. Hospital medicine was asked to admit patient for PUI. ID consulted. Reviewed patient medical record, medication administration, and vital signs. Patient is presently on room air. She reports persistent cough. 11/20: We'll wean down to 2 L of oxygen and monitor oxygen saturation. Home O2 eval in a.m. Continue antitussives medication. Prone positioning if able. Discussed with nursing staff and patient at bedside. Patient's son is currently intubated hospital undergoing management for Covid. Patient unfortunately did not get Covid vaccine. ID consulted to assist with management (1) Acute respiratory failure with hypoxia Current Visit: Yes Status: Acute Plan to address problem: Likely secondary to pneumonia/viral Covid infection Respiratory care, ABG, and chest x-ray Systemic steroid, bronchodilators, and oxygen supplement as needed Checks x-ray shows patchy bilateral pneumonia characteristics of atypical viral pneumonia like Covid (2) Pneumonia Current Visit: Yes Status: Acute Plan to address problem: Likely secondary to Covid infection Continue empiric antibiotics ID consult follow-up with recommendation Checks x-ray shows patchy bilateral pneumonia (3) COVID-19 virus infection Current Visit: Yes Status: Acute Plan to address problem: Airborne and contact isolation Respiratory care bronchodilator and oxygen as needed Ascorbic acid, zinc sulfate, vitamins D supplement Empiric antibiotic and monitor inflammatory markers ID consulted follow-up with recommendation Encourage prone position and the use of incentive spirometer (4) Hypertension Current Visit: Yes Status: Acute Qualifiers: Hypertension type: primary hypertension Qualified Code(s): I10 - Essential (primary) hypertension Plan to address problem: Better blood pressure Resume home antihypertensive As needed hydralazine (5) DVT prophylaxis Current Visit: Yes Status: Acute Plan to address problem: Lovenox History Interval history: Patient seen and examined reports some improvement in symptomology. Anticipate likely discharge tomorrow still with cough. Hospitalist Physical - Physical exam Narrative exam: VITAL SIGNS: Reviewed. GENERAL: The patient appears normally developed, morbidly obese, mildly uncomfortable with repeated cough vital signs as documented. HEAD: No signs of head trauma. EYES: Pupils are equal. Extraocular motions intact. EARS: Hearing grossly intact. MOUTH: Oropharynx is normal. NECK: No adenopathy, no JVD. CHEST: Chest with diminished breath sounds bilaterally. No wheezes, rales, or rhonchi. CARDIAC: Regular rate and rhythm. S1 and S2, without murmurs, gallops, or rubs. VASCULAR: No Edema. Peripheral pulses normal and equal in all extremities. ABDOMEN: Soft, non tender and non distended. No rebound or guarding, and no masses palpated. Bowel Sounds normal. MUSCULOSKELETAL: Good range of motion of all major joints. Extremities without clubbing, cyanosis or edema. NEUROLOGIC EXAM: Alert and oriented x 3 No focal sensory or strength deficits. Speech normal. Follows commands. PSYCHIATRIC: Mood normal. SKIN: detail exam as documented in skin assessment - Constitutional Vitals: Temp Pulse Resp BP Pulse Ox 98.1 F 92 H 20 149/77 94 11/20/20 11:55 11/20/20 08:45 11/20/20 08:45 11/20/20 08:45 11/20/20 09:12 Results - Labs CBC & Chem 7: 11/20/20 05:39 11/20/20 05:39 Labs: Laboratory Last Values WBC 9.6 K/mm3 (4.5-11.0) 11/20/20 05:39 RBC 4.95 M/mm3 (3.65-5.03) 11/20/20 05:39 Hgb 15.0 gm/dl (10.1-14.3) H 11/20/20 05:39 Hct 44.9 % (30.3-42.9) H 11/20/20 05:39 MCV 91 fl (79-97) 11/20/20 05:39 MCH 30 pg (28-32) 11/20/20 05:39 MCHC 33 % (30-34) 11/20/20 05:39 RDW 15.1 % (13.2-15.2) 11/20/20 05:39 Plt Count 186 K/mm3 (140-440) 11/20/20 05:39 Lymph % (Auto) 7.8 % (13.4-35.0) L 11/20/20 05:39 Burke % (Auto) 10.1 % (0.0-7.3) H 11/20/20 05:39 Eos % (Auto) 0.0 % (0.0-4.3) 11/20/20 05:39 Baso % (Auto) 0.1 % (0.0-1.8) 11/20/20 05:39 Lymph # (Auto) 0.7 K/mm3 (1.2-5.4) L 11/20/20 05:39 Burke # (Auto) 1.0 K/mm3 (0.0-0.8) H 11/20/20 05:39 Eos # (Auto) 0.0 K/mm3 (0.0-0.4) 11/20/20 05:39 Baso # (Auto) 0.0 K/mm3 (0.0-0.1) 11/20/20 05:39 Seg Neutrophils % 82.0 % (40.0-70.0) H 11/20/20 05:39 Seg Neutrophils # 7.9 K/mm3 (1.8-7.7) H 11/20/20 05:39 D-Dimer 559.48 ng/mlDDU (0-234) H 11/18/20 23:31 Sodium 141 mmol/L (137-145) 11/20/20 05:39 Potassium 3.6 mmol/L (3.6-5.0) 11/20/20 05:39 Chloride 98.7 mmol/L (98-107) 11/20/20 05:39 Carbon Dioxide 26 mmol/L (22-30) 11/20/20 05:39 Anion Gap 20 mmol/L 11/20/20 05:39 BUN 10 mg/dL (7-17) 11/20/20 05:39 Creatinine 0.5 mg/dL (0.6-1.2) L 11/20/20 05:39 Estimated GFR > 60 ml/min 11/20/20 05:39 BUN/Creatinine Ratio 20 % 11/20/20 05:39 Glucose 119 mg/dL (65-100) H 11/20/20 05:39 Hemoglobin A1c 5.8 % (4-6) 11/19/20 Unknown Lactic Acid 1.00 mmol/L (0.7-2.0) 11/18/20 23:31 Calcium 9.4 mg/dL (8.4-10.2) 11/20/20 05:39 Ferritin 1243.0 ng/mL (10.0-200.0) H 11/18/20 23:31 Total Bilirubin 0.30 mg/dL (0.1-1.2) 11/20/20 05:39 Direct Bilirubin < 0.2 mg/dL (0-0.2) 11/18/20 23:31 Indirect Bilirubin 0.0 mg/dL 11/18/20 23:31 AST 32 units/L (5-40) 11/20/20 05:39 ALT 23 units/L (7-56) 11/20/20 05:39 Alkaline Phosphatase 77 units/L (35-129) 11/20/20 05:39 Lactate Dehydrogenase 422 units/L (91-180) H 11/18/20 23:31 C-Reactive Protein 14.20 mg/dL (0.00-1.30) H 11/18/20 23:31 Total Protein 6.6 g/dL (6.3-8.2) 11/20/20 05:39 Albumin 3.6 g/dL (3.9-5) L 11/20/20 05:39 Albumin/Globulin Ratio 1.2 % 11/20/20 05:39 Procalcitonin 94.16 ng/mL (<0.15) 11/18/20 23:31 Coronavirus (PCR) Positive (Negative) A 11/19/20 Unknown Microbiology: Microbiology 11/19/20 00:11 Peripheral/Venous Blood Culture - Preliminary NO GROWTH AFTER 24 HOURS 11/18/20 23:31 Peripheral/Venous Blood Culture - Preliminary NO GROWTH AFTER 24 HOURS Active Medications - Current Medications Current Medications: Generic Name Dose Route Start Last Admin Trade Name Freq PRN Reason Stop Dose Admin Acetaminophen 650 mg 11/19/20 01:30 Acetaminophen 325 Mg Tab PO Q4H PRN Pain MILD(1-3)/Fever >100.5/ZHAO Hydrocodone Bitart/Acetaminophen 2 each 11/19/20 01:30 11/20/20 00:29 Hydrocodone/Acetaminophen 5-325 Mg Tab PO 2 each Q6H PRN Administration Pain, Moderate (4-6) Al Hydrox/Mg Hydrox/Simethicone 30 ml 07/31/21 01:30 Alum-Mag Hydroxide-Simethicone 221-143-71wk/5ml Oral Liqd 30 Ml PO Q4H PRN Indigestion Albuterol 2.5 mg 11/19/20 01:30 Albuterol 2.5 Mg/3 Ml Nebu IH Q4HRT PRN Shortness Of Breath Albuterol/Ipratropium 1 ampul 11/19/20 02:00 11/20/20 09:09 Ipratropium/Albuterol Sulfate 3 Ml Ampul.Neb IH 1 ampul Q6HRT NEO Administration Ascorbic Acid 500 mg 11/19/20 10:00 11/19/20 10:01 Ascorbic Acid 500 Mg Tab PO 500 mg QDAY NEO Administration Cholecalciferol 1,000 unit 11/19/20 10:00 11/19/20 10:01 Cholecalciferol (Vit D3) 1000 Unit (25 Mcg) Tab PO 1,000 unit QDAY NEO Administration Dexamethasone 6 mg 11/19/20 10:00 11/20/20 11:57 Dexamethasone 4 Mg/Ml Vial IV 6 mg DAILY NEO Administration Enoxaparin Sodium 40 mg 11/19/20 10:00 11/20/20 11:57 Enoxaparin 40 Mg/0.4 Ml Inj SUB-Q 40 mg QDAY@1000 NEO Administration Protocol Guaifenesin 200 mg 11/19/20 01:40 11/20/20 00:29 Guaifenesin 200 Mg Tab PO 200 mg Q6H PRN Administration Cough Guaifenesin 20 ml 11/20/20 12:30 Guaifenesin Dm 200/20 Mg Oral Liqd 10 Ml PO Q4H PRN Cough Hydralazine HCl 5 mg 11/19/20 01:47 Hydralazine 20 Mg/1 Ml Inj IV Q4HR PRN Hypertension Hydrocodone Bit/Homatropine Methylb 10 ml 11/20/20 12:30 Hydrocodone/Homatropine 5-1.5mg /5 Ml Oral Liqd Unit Dose PO Q6H PRN Cough Sodium Chloride 1,000 mls @ 42 mls/hr 11/19/20 01:30 Nacl 0.9% 1000 Ml IV DIRECT NEO Azithromycin 500 mg in 250 mls @ 250 mls/hr 11/19/20 22:00 11/19/20 23:48 Zithromax/Ns IV 250 mls/hr Q24H NEO Administration Ceftriaxone Sodium 1 gm in 50 mls @ 100 mls/hr 11/19/20 22:00 11/19/20 21:49 Rocephin/Ns 1 Gm/50 Ml IV 100 mls/hr Q24H NEO Administration Protocol REMDESIVIR 100 mg/ Sodium 250 mls @ 500 mls/hr 11/21/20 21:00 Chloride IV 11/24/20 21:29 Q24HR@2100 NEO Ibuprofen 600 mg 11/19/20 01:30 Ibuprofen 600 Mg Tab PO Q6H PRN Pain, Mild (1-3) Magnesium Hydroxide 30 ml 11/19/20 01:30 Magnesium Hydroxide (Mom) Oral Liqd Udc PO Q4H PRN Constipation Melatonin 10 mg 11/20/20 12:30 Melatonin 5 Mg Tab PO QHS PRN Sleep Metoclopramide HCl 10 mg 11/19/20 01:30 Metoclopramide 10 Mg/2 Ml Inj IV Q6H PRN Nausea And Vomiting Metoclopramide HCl 10 mg 11/19/20 02:04 Metoclopramide 10 Mg Tab PO QID PRN Nausea Morphine Sulfate 4 mg 11/19/20 01:30 11/20/20 04:48 Morphine 4 Mg/1 Ml Inj IV 4 mg Q4H PRN Administration Pain , Severe (7-10) Naloxone HCl 0.1 mg 11/19/20 01:30 Naloxone 0.4 Mg/1 Ml Inj IV Q2MIN PRN Res Rate </= 8 or 02 SAT < 92% Ondansetron HCl 4 mg 11/19/20 01:30 Ondansetron 4 Mg/2 Ml Inj IV Q8H PRN Nausea And Vomiting Pantoprazole Sodium 20 mg 11/19/20 10:00 11/20/20 11:56 Pantoprazole 20 Mg Tab PO 20 mg QDAY NEO Administration Senna 8.6 mg 11/19/20 10:00 11/20/20 00:24 Sennosides 8.6 Mg Tab PO Not Given Q12HR NEO Sodium Chloride 10 ml 11/19/20 10:00 11/20/20 11:58 Sodium Chloride 0.9% 10 Ml Flush Syringe IV 10 ml BID NEO Administration Sodium Chloride 50 ml 11/20/20 07:00 11/20/20 07:43 Sodium Chloride 0.9% 50 Ml Ivpb IV 11/24/20 21:01 50 ml Q24HR@2100 NEO Administration Zinc Sulfate 220 mg 11/19/20 10:00 11/20/20 11:56 Zinc Sulfate 220 Mg Cap PO 220 mg QDAY NEO Administration
[2020-11-20] MEDS ORDERED: MELATONIN 5 MG TAB PO PRN (12:30)
[2020-11-20] MEDS: cefTRIAXone/NS 1 GM/50 ML 1 GM/50 ML BAG IV SCH (22:42)
[2020-11-20] MEDS: AZITHROMYCIN/NS 500 MG/250 ML 500 MG/250 ML BAG IV SCH (22:43)
[2020-11-21] MEDS: guaiFENesin DM 200/20 MG ORAL LIQD 10 ML PO PRN (00:12)
[2020-11-21] MEDS: HYDROcodone/ACETAMINOPHEN 5-325 MG TAB PO PRN ×3 (01:12→22:33)
[2020-11-21] MEDS: IPRATROPIUM/ALBUTEROL SULFATE 3 ML AMPUL.NEB IH SCH ×5 (01:31→21:01)
[2020-11-21] MEDS: MORPHINE 4 MG/1 ML INJ IV PRN (06:31)
[2020-11-21] MEDS: HYDROcodone/HOMATROPINE 5-1.5MG /5 ML ORAL LIQD UNIT DOSE PO PRN (06:31)
[2020-11-21 07:42] LABS: Alanine Aminotransferase 21 units/L (7-56); Albumin 3.5 g/dL (3.9-5); Blood Urea Nitrogen 12 mg/dL (7-17); Calcium 9.4 mg/dL (8.4-10.2); Hemolysis Index 4
[2020-11-21 07:46] LABS: BUN/Creatinine Ratio 24
[2020-11-21] MEDS ORDERED: FUROSEMIDE 40 MG/4 ML INJ IV NR ×2 (08:00)
--- NOTE | 2020-11-21 09:31 | XRay Report ---
CHEST - 1 VIEW 0850 hours INDICATION: shortness of breath COMPARISON: 11/18/2020 FINDINGS: Support devices: None Heart: Within normal limits. Lungs/pleura: Patchy bilateral lung opacities appear stable. No pleural effusion or pneumothorax. Additional findings: None. IMPRESSION: Unchanged exam. Signer Name: Dayne Barrientos Jr, MD Signed: 11/21/2020 9:27 AM Workstation Name: [id number]
--- NOTE | 2020-11-21 10:33 | Progress Note ---
Assessment and Plan Cultures: SARS CoV2 PCR: Positive Blood culture in process A/P: 65-year-old female admitted as COVID-19 PUI, unvaccinated: #Bilateral pneumonia #Covid pneumonia #Acute hypoxic respiratory failure: On nasal cannula Recs: IV/PO Dexamethasone 6 mg daily x 10 days Complete ceftriaxone azithromycin to complete 5 days Complete 5 days Remdesivir Given highly elevated procalcitonin, not likely a candidate for Actemra prophylactic anticoagulation based on d-dimer per hospital protocol trend ferritin, LDH, d-dimer, CRP every 2-3 days for risk stratification and to assess disease progression Romina Rubin MD [facility] ([facility] O: [phone] F: [phone] Subjective Date of service: 11/21/20 Interval history: Afebrile, normal white count. On 3 L nasal cannula. Imaging personally viewed: Chest x-ray: Stable patchy bilateral opacities Objective - Exam Narrative Exam: Physical exam deferred to reduce risk of transmission of COVID-19. Please refer to primary team's note. - Constitutional Vitals: Vital Signs Temp Pulse Resp BP Pulse Ox 98.8 F 111 H 19 147/64 97 11/21/20 02:11 11/21/20 02:11 11/21/20 07:01 11/21/20 02:11 11/21/20 02:11 Temperature -Last 24 Hours Temperature 98.8 F Temperature 97.9 F Temperature 98.1 F - Labs CBC & Chem 7: 11/20/20 05:39 11/21/20 06:03 Labs: Abnormal lab results 11/21/20 Range/Units 06:03 Potassium 3.3 L (3.6-5.0) mmol/L Creatinine 0.5 L (0.6-1.2) mg/dL Glucose 102 H (65-100) mg/dL Albumin 3.5 L (3.9-5) g/dL
[2020-11-21] MEDS: PANTOPRAZOLE 20 MG TAB PO SCH (10:40)
[2020-11-21] MEDS: ZINC SULFATE 220 MG CAP PO SCH (10:40)
[2020-11-21] MEDS: SENNOSIDES 8.6 MG TAB PO SCH ×2 (10:40→22:36)
[2020-11-21] MEDS: dexAMETHasone 4 MG/ML VIAL IV SCH (10:40)
[2020-11-21] MEDS: ENOXAPARIN 40 MG/0.4 ML INJ SUB-Q SCH (10:40)
[2020-11-21] MEDS: ASCORBIC ACID 500 MG TAB PO SCH (10:41)
[2020-11-21] MEDS: CHOLECALCIFEROL (VIT D3) 1000 UNIT (25 mcg) TAB PO SCH (10:41)
--- NOTE | 2020-11-21 11:46 | Discharge Summary ---
Providers - Providers Date of Admission: 11/19/20 00:34 Attending physician: ETHAN MCCORMACK MD 11/19/20 01:30 Consult to Physician [CONS] Routine Comment: Consulting Provider: FRANK ADAMS Physician Instructions: Reason For Exam: PUI [facility] Reason for admission: covid pneumonia Condition: Stable Hospital course: This is a 65-year-old female who came to ED with shortness of breath and persistent cough. Patient has a history of hypertension. Patient reported her son has Covid and is in this hospital intubated in the ICU. she said she started having fever, headache, cough, shortness of breath, vomiting, diarrhea, loss of smell and taste. Patient said she did not receive COVID-19 vaccine. O2 sat 89% on room air. Hospital medicine was asked to admit patient for PUI. ID consulted. Reviewed patient medical record, medication administration, and vital signs. Patient is presently on room air. She reports persistent cough. 11/20: We'll wean down to 2 L of oxygen and monitor oxygen saturation. Home O2 eval in a.m. Continue antitussives medication. Prone positioning if able. Discussed with nursing staff and patient at bedside. Patient's son is currently intubated hospital undergoing management for Covid. Patient unfortunately did not get Covid vaccine. ID consulted to assist with management 11/21: Patient reports significant improvement except for cough otherwise she is doing well. She states that she ambulates with a walker at home. Plan is for her to be discharged with home oxygen and complete her steroids at home also discussed with the ID doctor who is in agreement this patient is currently satting 96% on 2 L. Weight loss counseling recommended to the patient. (1) Acute respiratory failure with hypoxia Current Visit: Yes Status: Acute Plan to address problem: Likely secondary to pneumonia/viral Covid infection Respiratory care, ABG, and chest x-ray Systemic steroid, bronchodilators, and oxygen supplement as needed Checks x-ray shows patchy bilateral pneumonia characteristics of atypical viral pneumonia like Covid (2) Pneumonia Current Visit: Yes Status: Acute Plan to address problem: Likely secondary to Covid infection Continue empiric antibiotics ID consult follow-up with recommendation Checks x-ray shows patchy bilateral pneumonia (3) COVID-19 virus infection Current Visit: Yes Status: Acute Plan to address problem: Airborne and contact isolation Respiratory care bronchodilator and oxygen as needed Ascorbic acid, zinc sulfate, vitamins D supplement Empiric antibiotic and monitor inflammatory markers ID consulted follow-up with recommendation Encourage prone position and the use of incentive spirometer (4) Hypertension Current Visit: Yes Status: Acute Qualifiers: Hypertension type: primary hypertension Qualified Code(s): I10 - Essential (primary) hypertension Plan to address problem: Better blood pressure Resume home antihypertensive As needed hydralazine 5] morbid obesity 6] hypoxic respiratory failure secondary to Covid pneumonia Disposition: [id number] HOME UNDER HOME HLTH Final Discharge Diagnosis (Prints w/discharge instructions): Hypoxic respiratory failure secondary to Covid pneumonia Time spent for discharge: 35 mins Core Measure Documentation - Palliative Care Palliative Care/ Comfort Measures: Not Applicable - Core Measures Any of the following diagnoses?: none Exam - Physical Exam Narrative exam: VITAL SIGNS: Reviewed. GENERAL: The patient appears normally developed, morbidly obese, mildly uncomfortable with repeated cough but improved compared to yesterday vital signs as documented. HEAD: No signs of head trauma. EYES: Pupils are equal. Extraocular motions intact. EARS: Hearing grossly intact. MOUTH: Oropharynx is normal. NECK: No adenopathy, no JVD. CHEST: Chest with diminished breath sounds bilaterally. No wheezes, rales, or rhonchi. CARDIAC: Regular rate and rhythm. S1 and S2, without murmurs, gallops, or rubs. VASCULAR: No Edema. Peripheral pulses normal and equal in all extremities. ABDOMEN: Soft, non tender and non distended. No rebound or guarding, and no masses palpated. Bowel Sounds normal. MUSCULOSKELETAL: Good range of motion of all major joints. Extremities without clubbing, cyanosis or edema. NEUROLOGIC EXAM: Alert and oriented x 3 No focal sensory or strength deficits. Speech normal and able to complete full sentences. Follows commands. PSYCHIATRIC: Mood normal. SKIN: detail exam as documented in skin assessment - Constitutional Vitals: Temp Pulse Resp BP Pulse Ox 98.8 F 92 H 22 147/64 96 11/21/20 02:11 11/21/20 10:38 11/21/20 10:38 11/21/20 02:11 11/21/20 10:56 Plan Activity: advance as tolerated, fall precautions Diet: low fat Special Instructions: record daily weights, record daily BP diary, physical therapy, occupational therapy Plan of Treatment: Continue to use incentive spirometer at home. Patient should keep a daily pulse oximeter diary. Return to ER if oxygen saturation is less than 90% Continue mask use and social distancing per state and CDC protocol Follow up with: FRANK ADAMS MD [Staff Physician] - 7 Days READING EVONNE PARSONS MD [Primary Care Provider] - 3-5 Days Prescriptions: dexAMETHasone [Dexamethasone] 8 mg PO DAILY #16 tablet Ipratropium/Albuterol Sulfate [DUONEB *Not for PRN Use*] 1 ampul IH Q6HRT #90 ampul.neb guaiFENesin DM [Guaifenesin Dm Syrup] 20 ml PO Q4H PRN 10 Days oral.liqd PRN Reason: Cough HYDROcodone/HOMATROP 5-1.5 [HYDROcodone-Homatropin 5-1.5 mg per 5 ML] 10 ml PO Q6H PRN 10 Days udc PRN Reason: Cough oxyCODONE /ACETAMINOPHEN [Percocet 5/325] 1 tab PO Q6HR PRN #10 tablet PRN Reason: Pain Albuterol Mdi (or & Nicu Only) [ProAir HFA Inhaler] 2 puff IH QID PRN #8.5 gram PRN Reason: Shortness Of Breath Ascorbic Acid [Vitamin C] 500 mg PO QDAY #30 tablet Cholecalciferol Vit D3 [Vitamin D3 1,000 UNIT TAB] 1,000 unit PO QDAY #30 tablet Zinc Sulfate 220 mg PO QDAY #30 capsule Other Discharge Orders: Nebulizer (Amb) Location: None Selected
[2020-11-21] MEDS: POTASSIUM CHLORIDE ER 20 MEQ TAB PO SCH ×2 (13:54→14:11)
[2020-11-21] MEDS: REMDESIVIR 100 MG in SODIUM CHLORIDE 0.9% 250ML 250 ML IV SCH (22:35)
[2020-11-21] MEDS: SODIUM CHLORIDE 0.9% 50 ML IVPB IV SCH (22:35)
[2020-11-21] MEDS: cefTRIAXone/NS 1 GM/50 ML 1 GM/50 ML BAG IV SCH (23:08)
[2020-11-21] MEDS: AZITHROMYCIN/NS 500 MG/250 ML 500 MG/250 ML BAG IV SCH (23:09)
[2020-11-22] MEDS: IPRATROPIUM/ALBUTEROL SULFATE 3 ML AMPUL.NEB IH SCH ×4 (02:51→21:43)
[2020-11-22] MEDS: HYDROcodone/ACETAMINOPHEN 5-325 MG TAB PO PRN ×2 (06:54→23:02)
[2020-11-22 08:20] LABS: Alanine Aminotransferase 25 units/L (7-56); Albumin 3.3 g/dL (3.9-5); Blood Urea Nitrogen 11 mg/dL (7-17); Calcium 9.3 mg/dL (8.4-10.2); Hemolysis Index 6
[2020-11-22 08:21] LABS: BUN/Creatinine Ratio 28
[2020-11-22] MEDS: dexAMETHasone 4 MG/ML VIAL IV SCH (09:28)
[2020-11-22] MEDS: guaiFENesin DM 200/20 MG ORAL LIQD 10 ML PO PRN ×2 (09:28→14:41)
[2020-11-22] MEDS: PANTOPRAZOLE 20 MG TAB PO SCH (09:29)
[2020-11-22] MEDS: ASCORBIC ACID 500 MG TAB PO SCH (09:29)
[2020-11-22] MEDS: CHOLECALCIFEROL (VIT D3) 1000 UNIT (25 mcg) TAB PO SCH (09:29)
[2020-11-22] MEDS: ENOXAPARIN 40 MG/0.4 ML INJ SUB-Q SCH (09:29)
[2020-11-22] MEDS: SENNOSIDES 8.6 MG TAB PO SCH ×3 (09:30→23:04)
[2020-11-22] MEDS: ZINC SULFATE 220 MG CAP PO SCH (09:30)
--- NOTE | 2020-11-22 12:15 | Progress Note ---
Assessment and Plan Cultures: SARS CoV2 PCR: Positive Blood culture in process A/P: 65-year-old female admitted as COVID-19 PUI, unvaccinated: #Bilateral pneumonia #Covid pneumonia #Acute hypoxic respiratory failure: On nasal cannula Recs: IV/PO Dexamethasone 6 mg daily x 10 days Complete ceftriaxone azithromycin to complete 5 days Complete 5 days Remdesivir Given highly elevated procalcitonin, not likely a candidate for Actemra prophylactic anticoagulation based on d-dimer per hospital protocol trend ferritin, LDH, d-dimer, CRP every 2-3 days for risk stratification and to assess disease progression Romina Rubin MD [facility] ([facility] O: [phone] F: [phone] Subjective Date of service: 11/22/20 Interval history: Afebrile, normal white count. On 3 L nasal cannula. Objective - Exam Narrative Exam: Physical exam deferred to reduce risk of transmission of COVID-19. Please refer to primary team's note. - Constitutional Vitals: Vital Signs Temp Pulse Resp BP Pulse Ox 97.7 F 107 H 20 147/68 92 11/22/20 00:28 11/22/20 08:05 11/22/20 08:05 11/22/20 00:26 11/22/20 08:04 Temperature -Last 24 Hours Temperature 97.7 F Temperature 97.6 F - Labs CBC & Chem 7: 11/20/20 05:39 11/22/20 07:10 Labs: Abnormal lab results 11/22/20 Range/Units 07:10 Creatinine 0.4 L (0.6-1.2) mg/dL Albumin 3.3 L (3.9-5) g/dL
--- NOTE | 2020-11-22 12:16 | Progress Note ---
Assessment and Plan Assessment and plan: Ashley is a 65-year-old female who came to ED with shortness of breath and persistent cough. Patient has a history of hypertension. Patient reported her son has Covid and is in this hospital intubated in the ICU. she said she started having fever, headache, cough, shortness of breath, vomiting, diarrhea, loss of smell and taste. Patient said she did not receive COVID-19 vaccine. O2 sat 89% on room air. Hospital medicine was asked to admit patient for PUI. ID consulted. Reviewed patient medical record, medication administration, and vital signs. Patient is presently on room air. She reports persistent cough. 11/20: We'll wean down to 2 L of oxygen and monitor oxygen saturation. Home O2 eval in a.m. Continue antitussives medication. Prone positioning if able. Discussed with nursing staff and patient at bedside. Patient's son is currently intubated hospital undergoing management for Covid. Patient unfortunately did not get Covid vaccine. ID consulted to assist with management 11/21: Patient reports significant improvement except for cough otherwise she is doing well. She states that she ambulates with a walker at home. Plan is for her to be discharged with home oxygen and complete her steroids at home also discussed with the ID doctor who is in agreement this patient is currently satting 96% on 2 L. Weight loss counseling recommended to the patient. 11/22: Patient seen and examined this morning but was not discharged yesterday as there was confusion about her oxygen she did not have the walk test done. This morning she was noted to desat into the 80s on room air on exertion. Oxygen was arranged for the patient but the patient reported a worsening cough and dizziness. We will proceed with getting physical therapy due to debility, will hold discharge at this time. Encourage prone positioning if tolerable. Continue oxygen will check orthostatic vitals at this time. We will also increase steroids to 8 mg due to morbid obesity. (1) Acute respiratory failure with hypoxia Current Visit: Yes Status: Acute Plan to address problem: Likely secondary to pneumonia/viral Covid infection Respiratory care, ABG, and chest x-ray Systemic steroid, bronchodilators, and oxygen supplement as needed Checks x-ray shows patchy bilateral pneumonia characteristics of atypical viral pneumonia like Covid (2) Pneumonia Current Visit: Yes Status: Acute Plan to address problem: Likely secondary to Covid infection Continue empiric antibiotics ID consult follow-up with recommendation Checks x-ray shows patchy bilateral pneumonia (3) COVID-19 virus infection Current Visit: Yes Status: Acute Plan to address problem: Airborne and contact isolation Respiratory care bronchodilator and oxygen as needed Ascorbic acid, zinc sulfate, vitamins D supplement Empiric antibiotic and monitor inflammatory markers ID consulted follow-up with recommendation Encourage prone position and the use of incentive spirometer (4) Hypertension Current Visit: Yes Status: Acute Qualifiers: Hypertension type: primary hypertension Qualified Code(s): I10 - Essential (primary) hypertension Plan to address problem: Better blood pressure Resume home antihypertensive As needed hydralazine 5] morbid obesity 6] near syncope Hospitalist Physical - Constitutional Vitals: Temp Pulse Resp BP Pulse Ox 97.7 F 107 H 20 147/68 92 11/22/20 00:28 11/22/20 08:05 11/22/20 08:05 11/22/20 00:26 11/22/20 08:04 Results - Labs CBC & Chem 7: 11/20/20 05:39 11/22/20 07:10 Labs: Laboratory Last Values WBC 9.6 K/mm3 (4.5-11.0) 11/20/20 05:39 RBC 4.95 M/mm3 (3.65-5.03) 11/20/20 05:39 Hgb 15.0 gm/dl (10.1-14.3) H 11/20/20 05:39 Hct 44.9 % (30.3-42.9) H 11/20/20 05:39 MCV 91 fl (79-97) 11/20/20 05:39 MCH 30 pg (28-32) 11/20/20 05:39 MCHC 33 % (30-34) 11/20/20 05:39 RDW 15.1 % (13.2-15.2) 11/20/20 05:39 Plt Count 186 K/mm3 (140-440) 11/20/20 05:39 Lymph % (Auto) 7.8 % (13.4-35.0) L 11/20/20 05:39 [place] % (Auto) 10.1 % (0.0-7.3) H 11/20/20 05:39 Eos % (Auto) 0.0 % (0.0-4.3) 11/20/20 05:39 Baso % (Auto) 0.1 % (0.0-1.8) 11/20/20 05:39 Lymph # (Auto) 0.7 K/mm3 (1.2-5.4) L 11/20/20 05:39 [place] # (Auto) 1.0 K/mm3 (0.0-0.8) H 11/20/20 05:39 Eos # (Auto) 0.0 K/mm3 (0.0-0.4) 11/20/20 05:39 Baso # (Auto) 0.0 K/mm3 (0.0-0.1) 11/20/20 05:39 Seg Neutrophils % 82.0 % (40.0-70.0) H 11/20/20 05:39 Seg Neutrophils # 7.9 K/mm3 (1.8-7.7) H 11/20/20 05:39 D-Dimer 559.48 ng/mlDDU (0-234) H 11/18/20 23:31 Sodium 140 mmol/L (137-145) 11/22/20 07:10 Potassium 3.9 mmol/L (3.6-5.0) 11/22/20 07:10 Chloride 99.3 mmol/L (98-107) 11/22/20 07:10 Carbon Dioxide 30 mmol/L (22-30) 11/22/20 07:10 Anion Gap 15 mmol/L 11/22/20 07:10 BUN 11 mg/dL (7-17) 11/22/20 07:10 Creatinine 0.4 mg/dL (0.6-1.2) L 11/22/20 07:10 Estimated GFR > 60 ml/min 11/22/20 07:10 BUN/Creatinine Ratio 28 % 11/22/20 07:10 Glucose 97 mg/dL (65-100) 11/22/20 07:10 Hemoglobin A1c 5.8 % (4-6) 11/19/20 Unknown Lactic Acid 1.00 mmol/L (0.7-2.0) 11/18/20 23:31 Calcium 9.3 mg/dL (8.4-10.2) 11/22/20 07:10 Ferritin 1243.0 ng/mL (10.0-200.0) H 11/18/20 23:31 Total Bilirubin 0.40 mg/dL (0.1-1.2) 11/22/20 07:10 Direct Bilirubin < 0.2 mg/dL (0-0.2) 11/18/20 23:31 Indirect Bilirubin 0.0 mg/dL 11/18/20 23:31 AST 22 units/L (5-40) 11/22/20 07:10 ALT 25 units/L (7-56) 11/22/20 07:10 Alkaline Phosphatase 65 units/L (35-129) 11/22/20 07:10 Lactate Dehydrogenase 422 units/L (91-180) H 11/18/20 23:31 C-Reactive Protein 14.20 mg/dL (0.00-1.30) H 11/18/20 23:31 Total Protein 6.8 g/dL (6.3-8.2) 11/22/20 07:10 Albumin 3.3 g/dL (3.9-5) L 11/22/20 07:10 Albumin/Globulin Ratio 0.9 % 11/22/20 07:10 Procalcitonin 94.16 ng/mL (<0.15) 11/18/20 23:31 Coronavirus (PCR) Positive (Negative) A 11/19/20 Unknown Microbiology: Microbiology 11/18/20 23:31 Peripheral/Venous Blood Culture - Preliminary NO GROWTH AFTER 72 HOURS 11/19/20 00:11 Peripheral/Venous Blood Culture - Preliminary NO GROWTH AFTER 72 HOURS Low/IV: Voiding Method External Female Catheter Active Medications - Current Medications Current Medications: Generic Name Dose Route Start Last Admin Trade Name Freq PRN Reason Stop Dose Admin Acetaminophen 650 mg 11/19/20 01:30 Acetaminophen 325 Mg Tab PO Q4H PRN Pain MILD(1-3)/Fever >100.5/ZHAO Hydrocodone Bitart/Acetaminophen 2 each 11/19/20 01:30 11/22/20 06:54 Hydrocodone/Acetaminophen 5-325 Mg Tab PO 2 each Q6H PRN Administration Pain, Moderate (4-6) Al Hydrox/Mg Hydrox/Simethicone 30 ml 11/19/20 01:30 Alum-Mag Hydroxide-Simethicone [id number]/5ml Oral Liqd 30 Ml PO Q4H PRN Indigestion Albuterol 2.5 mg 11/19/20 01:30 Albuterol 2.5 Mg/3 Ml Nebu IH Q4HRT PRN Shortness Of Breath Albuterol/Ipratropium 1 ampul 11/19/20 02:00 11/22/20 08:05 Ipratropium/Albuterol Sulfate 3 Ml Ampul.Neb IH 1 ampul Q6HRT NEO Administration Ascorbic Acid 500 mg 11/19/20 10:00 11/22/20 09:29 Ascorbic Acid 500 Mg Tab PO 500 mg QDAY NEO Administration Cholecalciferol 1,000 unit 11/19/20 10:00 11/22/20 09:29 Cholecalciferol (Vit D3) 1000 Unit (25 Mcg) Tab PO 1,000 unit QDAY NEO Administration Dexamethasone 8 mg 11/22/20 12:13 Dexamethasone 4 Mg/Ml Vial IV 11/27/20 10:01 DAILY NEO Enoxaparin Sodium 40 mg 11/19/20 10:00 11/22/20 09:29 Enoxaparin 40 Mg/0.4 Ml Inj SUB-Q 40 mg QDAY@1000 NEO Administration Protocol Guaifenesin 200 mg 11/19/20 01:40 11/20/20 13:57 Guaifenesin 200 Mg Tab PO 200 mg Q6H PRN Administration Cough Guaifenesin 20 ml 11/20/20 12:30 11/22/20 09:28 Guaifenesin Dm 200/20 Mg Oral Liqd 10 Ml PO 20 ml Q4H PRN Administration Cough Hydralazine HCl 5 mg 11/19/20 01:47 Hydralazine 20 Mg/1 Ml Inj IV Q4HR PRN Hypertension Hydrocodone Bit/Homatropine Methylb 10 ml 11/20/20 12:30 11/21/20 06:31 Hydrocodone/Homatropine 5-1.5mg /5 Ml Oral Liqd Unit Dose PO 10 ml Q6H PRN Administration Cough Sodium Chloride 1,000 mls @ 42 mls/hr 11/19/20 01:30 11/21/20 10:42 Nacl 0.9% 1000 Ml IV 42 mls/hr DIRECT NEO Administration Azithromycin 500 mg in 250 mls @ 250 mls/hr 11/19/20 22:00 11/21/20 23:09 Zithromax/Ns IV 11/22/20 22:59 250 mls/hr Q24H NEO Administration Ceftriaxone Sodium 1 gm in 50 mls @ 100 mls/hr 11/19/20 22:00 11/21/20 23:08 Rocephin/Ns 1 Gm/50 Ml IV 11/22/20 23:59 100 mls/hr Q24H NEO Administration Protocol REMDESIVIR 100 mg/ Sodium 250 mls @ 500 mls/hr 11/21/20 21:00 11/21/20 22:35 Chloride IV 11/24/20 21:29 500 mls/hr Q24HR@2100 NEO Administration Ibuprofen 600 mg 11/19/20 01:30 Ibuprofen 600 Mg Tab PO Q6H PRN Pain, Mild (1-3) Magnesium Hydroxide 30 ml 11/19/20 01:30 Magnesium Hydroxide (Mom) Oral Liqd Udc PO Q4H PRN Constipation Melatonin 10 mg 11/20/20 12:30 Melatonin 5 Mg Tab PO QHS PRN Sleep Metoclopramide HCl 10 mg 11/19/20 01:30 Metoclopramide 10 Mg/2 Ml Inj IV Q6H PRN Nausea And Vomiting Morphine Sulfate 4 mg 11/19/20 01:30 11/21/20 06:31 Morphine 4 Mg/1 Ml Inj IV 4 mg Q4H PRN Administration Pain , Severe (7-10) Naloxone HCl 0.1 mg 11/19/20 01:30 Naloxone 0.4 Mg/1 Ml Inj IV Q2MIN PRN Res Rate </= 8 or 02 SAT < 92% Ondansetron HCl 4 mg 11/19/20 01:30 Ondansetron 4 Mg/2 Ml Inj IV Q8H PRN Nausea And Vomiting Pantoprazole Sodium 20 mg 11/19/20 10:00 11/22/20 09:29 Pantoprazole 20 Mg Tab PO 20 mg QDAY NEO Administration Senna 8.6 mg 11/19/20 10:00 11/22/20 09:30 Sennosides 8.6 Mg Tab PO Not Given Q12HR NEO Sodium Chloride 10 ml 11/19/20 10:00 11/22/20 09:29 Sodium Chloride 0.9% 10 Ml Flush Syringe IV 10 ml BID NEO Administration Sodium Chloride 50 ml 11/20/20 07:00 11/21/20 22:35 Sodium Chloride 0.9% 50 Ml Ivpb IV 11/24/20 21:01 50 ml Q24HR@2100 NEO Administration Zinc Sulfate 220 mg 11/19/20 10:00 11/22/20 09:30 Zinc Sulfate 220 Mg Cap PO 220 mg QDAY NEO Administration
[2020-11-22] MEDS: REMDESIVIR 100 MG in SODIUM CHLORIDE 0.9% 250ML 250 ML IV SCH (23:02)
[2020-11-22] MEDS: SODIUM CHLORIDE 0.9% 50 ML IVPB IV SCH (23:33)
[2020-11-23] MEDS: cefTRIAXone/NS 1 GM/50 ML 1 GM/50 ML BAG IV SCH (00:43)
[2020-11-23] MEDS: AZITHROMYCIN/NS 500 MG/250 ML 500 MG/250 ML BAG IV SCH (01:36)
[2020-11-23] MEDS: IPRATROPIUM/ALBUTEROL SULFATE 3 ML AMPUL.NEB IH SCH ×4 (02:28→21:44)
[2020-11-23 08:43] LABS: Alanine Aminotransferase 37 units/L (7-56); Albumin 3.6 g/dL (3.9-5); Blood Urea Nitrogen 11 mg/dL (7-17); Calcium 9.6 mg/dL (8.4-10.2); Hemolysis Index 4
[2020-11-23 08:50] LABS: BUN/Creatinine Ratio 22
--- NOTE | 2020-11-23 12:14 | Progress Note ---
Assessment and Plan Assessment and plan: Ashley is a 65-year-old female who came to ED with shortness of breath and persistent cough. Patient has a history of hypertension. Patient reported her son has Covid and is in this hospital intubated in the ICU. she said she started having fever, headache, cough, shortness of breath, vomiting, diarrhea, loss of smell and taste. Patient said she did not receive COVID-19 vaccine. O2 sat 89% on room air. Hospital medicine was asked to admit patient for PUI. ID consulted. Reviewed patient medical record, medication administration, and vital signs. Patient is presently on room air. She reports persistent cough. 11/20: We'll wean down to 2 L of oxygen and monitor oxygen saturation. Home O2 eval in a.m. Continue antitussives medication. Prone positioning if able. Discussed with nursing staff and patient at bedside. Patient's son is currently intubated hospital undergoing management for Covid. Patient unfortunately did not get Covid vaccine. ID consulted to assist with management 11/21: Patient reports significant improvement except for cough otherwise she is doing well. She states that she ambulates with a walker at home. Plan is for her to be discharged with home oxygen and complete her steroids at home also discussed with the ID doctor who is in agreement this patient is currently satting 96% on 2 L. Weight loss counseling recommended to the patient. 11/22: Patient seen and examined this morning but was not discharged yesterday as there was confusion about her oxygen she did not have the walk test done. This morning she was noted to desat into the 80s on room air on exertion. Oxygen was arranged for the patient but the patient reported a worsening cough and dizziness. We will proceed with getting physical therapy due to debility, will hold discharge at this time. Encourage prone positioning if tolerable. Continue oxygen will check orthostatic vitals at this time. We will also increase steroids to 8 mg due to morbid obesity. 11/23: Patient will continue with Remdesivir and steroids, she will get PT/OT today to evaluate safety and if any further exertional dyspnea. she is still requiring oxygen and will be discharged in am with O2. Plan discussed with the patient and she is agreeable with that. (1) Acute respiratory failure with hypoxia Current Visit: Yes Status: Acute Plan to address problem: Likely secondary to pneumonia/viral Covid infection Respiratory care, ABG, and chest x-ray Systemic steroid, bronchodilators, and oxygen supplement as needed Checks x-ray shows patchy bilateral pneumonia characteristics of atypical viral pneumonia like Covid (2) Pneumonia Current Visit: Yes Status: Acute Plan to address problem: Likely secondary to Covid infection Continue empiric antibiotics ID consult follow-up with recommendation Checks x-ray shows patchy bilateral pneumonia (3) COVID-19 virus infection Current Visit: Yes Status: Acute Plan to address problem: Airborne and contact isolation Respiratory care bronchodilator and oxygen as needed Ascorbic acid, zinc sulfate, vitamins D supplement Empiric antibiotic and monitor inflammatory markers ID consulted follow-up with recommendation Encourage prone position and the use of incentive spirometer (4) Hypertension Current Visit: Yes Status: Acute Qualifiers: Hypertension type: primary hypertension Qualified Code(s): I10 - Essential (primary) hypertension Plan to address problem: Better blood pressure Resume home antihypertensive As needed hydralazine 5] morbid obesity 6] near syncope History Interval history: Patient seen and examined reports some improvement in symptomology. STILL WITH DIZZINESS, HAS NOT HAD PT YET. Patient ambulates with walker at home Hospitalist Physical - Physical exam Narrative exam: VITAL SIGNS: Reviewed. GENERAL: The patient appears normally developed, morbidly obese,cough continues to improve vital signs as documented. HEAD: No signs of head trauma. EYES: Pupils are equal. Extraocular motions intact. EARS: Hearing grossly intact. MOUTH: Oropharynx is normal. NECK: No adenopathy, no JVD. CHEST: Chest with diminished breath sounds bilaterally. No wheezes, rales, or rhonchi. CARDIAC: Regular rate and rhythm. S1 and S2, without murmurs, gallops, or rubs. VASCULAR: No Edema. Peripheral pulses normal and equal in all extremities. ABDOMEN: Soft, non tender and non distended. No rebound or guarding, and no masses palpated. Bowel Sounds normal. MUSCULOSKELETAL: Good range of motion of all major joints. Extremities without clubbing, cyanosis or edema. NEUROLOGIC EXAM: Alert and oriented x 3 No focal sensory or strength deficits. Speech normal and able to complete full sentences. Follows commands. PSYCHIATRIC: Mood normal. SKIN: detail exam as documented in skin assessment - Constitutional Vitals: Temp Pulse Resp BP Pulse Ox 97.6 F 98 H 18 158/63 99 11/23/20 06:14 11/23/20 07:59 11/23/20 07:59 08/04/21 06:14 11/23/20 07:59 Results - Labs CBC & Chem 7: 11/20/20 05:39 11/23/20 07:25 Labs: Laboratory Last Values WBC 9.6 K/mm3 (4.5-11.0) 11/20/20 05:39 RBC 4.95 M/mm3 (3.65-5.03) 11/20/20 05:39 Hgb 15.0 gm/dl (10.1-14.3) H 11/20/20 05:39 Hct 44.9 % (30.3-42.9) H 11/20/20 05:39 MCV 91 fl (79-97) 11/20/20 05:39 MCH 30 pg (28-32) 11/20/20 05:39 MCHC 33 % (30-34) 11/20/20 05:39 RDW 15.1 % (13.2-15.2) 11/20/20 05:39 Plt Count 186 K/mm3 (140-440) 11/20/20 05:39 Lymph % (Auto) 7.8 % (13.4-35.0) L 11/20/20 05:39 [place] % (Auto) 10.1 % (0.0-7.3) H 11/20/20 05:39 Eos % (Auto) 0.0 % (0.0-4.3) 11/20/20 05:39 Baso % (Auto) 0.1 % (0.0-1.8) 11/20/20 05:39 Lymph # (Auto) 0.7 K/mm3 (1.2-5.4) L 11/20/20 05:39 [place] # (Auto) 1.0 K/mm3 (0.0-0.8) H 11/20/20 05:39 Eos # (Auto) 0.0 K/mm3 (0.0-0.4) 11/20/20 05:39 Baso # (Auto) 0.0 K/mm3 (0.0-0.1) 11/20/20 05:39 Seg Neutrophils % 82.0 % (40.0-70.0) H 11/20/20 05:39 Seg Neutrophils # 7.9 K/mm3 (1.8-7.7) H 11/20/20 05:39 D-Dimer 559.48 ng/mlDDU (0-234) H 11/18/20 23:31 Sodium 143 mmol/L (137-145) 11/23/20 07:25 Potassium 4.4 mmol/L (3.6-5.0) 11/23/20 07:25 Chloride 100.5 mmol/L (98-107) 11/23/20 07:25 Carbon Dioxide 34 mmol/L (22-30) H 11/23/20 07:25 Anion Gap 13 mmol/L 11/23/20 07:25 BUN 11 mg/dL (7-17) 11/23/20 07:25 Creatinine 0.5 mg/dL (0.6-1.2) L 11/23/20 07:25 Estimated GFR > 60 ml/min 11/23/20 07:25 BUN/Creatinine Ratio 22 % 11/23/20 07:25 Glucose 106 mg/dL (65-100) H 11/23/20 07:25 Hemoglobin A1c 5.8 % (4-6) 11/19/20 Unknown Lactic Acid 1.00 mmol/L (0.7-2.0) 11/18/20 23:31 Calcium 9.6 mg/dL (8.4-10.2) 11/23/20 07:25 Ferritin 1243.0 ng/mL (10.0-200.0) H 11/18/20 23:31 Total Bilirubin 0.40 mg/dL (0.1-1.2) 11/23/20 07:25 Direct Bilirubin < 0.2 mg/dL (0-0.2) 11/18/20 23:31 Indirect Bilirubin 0.0 mg/dL 11/18/20 23:31 AST 26 units/L (5-40) 11/23/20 07:25 ALT 37 units/L (7-56) 11/23/20 07:25 Alkaline Phosphatase 66 units/L (35-129) 11/23/20 07:25 Lactate Dehydrogenase 422 units/L (91-180) H 11/18/20 23:31 C-Reactive Protein 14.20 mg/dL (0.00-1.30) H 11/18/20 23:31 Total Protein 6.4 g/dL (6.3-8.2) 11/23/20 07:25 Albumin 3.6 g/dL (3.9-5) L 11/23/20 07:25 Albumin/Globulin Ratio 1.3 % 11/23/20 07:25 Procalcitonin 94.16 ng/mL (<0.15) 11/18/20 23:31 Coronavirus (PCR) Positive (Negative) A 11/19/20 Unknown Microbiology: Microbiology 11/18/20 23:31 Peripheral/Venous Blood Culture - Preliminary NO GROWTH AFTER 4 DAYS 11/19/20 00:11 Peripheral/Venous Blood Culture - Preliminary NO GROWTH AFTER 4 DAYS Low/IV: Voiding Method External Female Catheter Active Medications - Current Medications Current Medications: Generic Name Dose Route Start Last Admin Trade Name Freq PRN Reason Stop Dose Admin Acetaminophen 650 mg 11/19/20 01:30 Acetaminophen 325 Mg Tab PO Q4H PRN Pain MILD(1-3)/Fever >100.5/ZHAO Hydrocodone Bitart/Acetaminophen 2 each 11/19/20 01:30 11/22/20 23:02 Hydrocodone/Acetaminophen 5-325 Mg Tab PO 2 each Q6H PRN Administration Pain, Moderate (4-6) Al Hydrox/Mg Hydrox/Simethicone 30 ml 11/19/20 01:30 Alum-Mag Hydroxide-Simethicone [id number]/5ml Oral Liqd 30 Ml PO Q4H PRN Indigestion Albuterol 2.5 mg 11/19/20 01:30 Albuterol 2.5 Mg/3 Ml Nebu IH Q4HRT PRN Shortness Of Breath Albuterol/Ipratropium 1 ampul 11/19/20 02:00 11/23/20 07:59 Ipratropium/Albuterol Sulfate 3 Ml Ampul.Neb IH 1 ampul Q6HRT NEO Administration Ascorbic Acid 500 mg 11/19/20 10:00 11/22/20 09:29 Ascorbic Acid 500 Mg Tab PO 500 mg QDAY NEO Administration Cholecalciferol 1,000 unit 11/19/20 10:00 11/22/20 09:29 Cholecalciferol (Vit D3) 1000 Unit (25 Mcg) Tab PO 1,000 unit QDAY NEO Administration Dexamethasone 8 mg 11/22/20 12:13 Dexamethasone 4 Mg/Ml Vial IV 11/27/20 10:01 DAILY NEO Enoxaparin Sodium 40 mg 11/19/20 10:00 11/22/20 09:29 Enoxaparin 40 Mg/0.4 Ml Inj SUB-Q 40 mg QDAY@1000 NEO Administration Protocol Guaifenesin 200 mg 11/19/20 01:40 11/20/20 13:57 Guaifenesin 200 Mg Tab PO 200 mg Q6H PRN Administration Cough Guaifenesin 20 ml 11/20/20 12:30 11/22/20 14:41 Guaifenesin Dm 200/20 Mg Oral Liqd 10 Ml PO 20 ml Q4H PRN Administration Cough Hydralazine HCl 5 mg 11/19/20 01:47 Hydralazine 20 Mg/1 Ml Inj IV Q4HR PRN Hypertension Hydrocodone Bit/Homatropine Methylb 10 ml 11/20/20 12:30 11/21/20 06:31 Hydrocodone/Homatropine 5-1.5mg /5 Ml Oral Liqd Unit Dose PO 10 ml Q6H PRN Administration Cough Sodium Chloride 1,000 mls @ 42 mls/hr 11/19/20 01:30 11/21/20 10:42 Nacl 0.9% 1000 Ml IV 42 mls/hr DIRECT NEO Administration REMDESIVIR 100 mg/ Sodium 250 mls @ 500 mls/hr 11/21/20 21:00 11/22/20 23:02 Chloride IV 11/24/20 21:29 500 mls/hr Q24HR@2100 NEO Administration Ibuprofen 600 mg 11/19/20 01:30 Ibuprofen 600 Mg Tab PO Q6H PRN Pain, Mild (1-3) Magnesium Hydroxide 30 ml 11/19/20 01:30 Magnesium Hydroxide (Mom) Oral Liqd Udc PO Q4H PRN Constipation Melatonin 10 mg 11/20/20 12:30 Melatonin 5 Mg Tab PO QHS PRN Sleep Metoclopramide HCl 10 mg 11/19/20 01:30 Metoclopramide 10 Mg/2 Ml Inj IV Q6H PRN Nausea And Vomiting Morphine Sulfate 4 mg 11/19/20 01:30 11/21/20 06:31 Morphine 4 Mg/1 Ml Inj IV 4 mg Q4H PRN Administration Pain , Severe (7-10) Naloxone HCl 0.1 mg 11/19/20 01:30 Naloxone 0.4 Mg/1 Ml Inj IV Q2MIN PRN Res Rate </= 8 or 02 SAT < 92% Ondansetron HCl 4 mg 11/19/20 01:30 Ondansetron 4 Mg/2 Ml Inj IV Q8H PRN Nausea And Vomiting Pantoprazole Sodium 20 mg 11/19/20 10:00 11/22/20 09:29 Pantoprazole 20 Mg Tab PO 20 mg QDAY NEO Administration Senna 8.6 mg 11/19/20 10:00 11/22/20 23:04 Sennosides 8.6 Mg Tab PO Not Given Q12HR NEO Sodium Chloride 10 ml 11/19/20 10:00 11/22/20 23:03 Sodium Chloride 0.9% 10 Ml Flush Syringe IV 10 ml BID NEO Administration Sodium Chloride 50 ml 11/20/20 07:00 11/22/20 23:33 Sodium Chloride 0.9% 50 Ml Ivpb IV 11/24/20 21:01 50 ml Q24HR@2100 NEO Administration Zinc Sulfate 220 mg 11/19/20 10:00 11/22/20 09:30 Zinc Sulfate 220 Mg Cap PO 220 mg QDAY NEO Administration
--- NOTE | 2020-11-23 16:31 | Progress Note ---
Assessment and Plan Cultures: SARS CoV2 PCR: Positive Blood culture in process A/P: 65-year-old female admitted as COVID-19 PUI, unvaccinated: #Bilateral pneumonia #Covid pneumonia #Acute hypoxic respiratory failure: On nasal cannula Recs: IV/PO Dexamethasone 6 mg daily x 10 days Completed empiric antibiotics Complete 5 days Remdesivir Given highly elevated procalcitonin, not likely a candidate for Actemra prophylactic anticoagulation based on d-dimer per hospital protocol trend ferritin, LDH, d-dimer, CRP every 2-3 days for risk stratification and to assess disease progression Romina Rubin MD [facility] O: [phone] F: [phone] Subjective Date of service: 11/23/20 Interval history: Afebrile, normal white count. On 3 L nasal cannula. Imaging personally reviewed: Chest CTA: Objective - Exam Narrative Exam: Physical exam deferred to reduce risk of transmission of COVID-19. Please refer to primary team's note. - Constitutional Vitals: Vital Signs Temp Pulse Resp BP Pulse Ox 98.1 F 85 16 173/90 99 11/23/20 10:49 11/23/20 13:55 11/23/20 13:55 11/23/20 10:49 11/23/20 10:49 Temperature -Last 24 Hours Temperature 98.1 F Temperature 97.6 F Temperature 97.7 F - Labs CBC & Chem 7: 11/20/20 05:39 11/23/20 07:25 Labs: Abnormal lab results 11/23/20 Range/Units 07:25 Carbon Dioxide 34 H (22-30) mmol/L Creatinine 0.5 L (0.6-1.2) mg/dL Glucose 106 H (65-100) mg/dL Albumin 3.6 L (3.9-5) g/dL
--- NOTE | 2020-11-23 17:41 | Cat Scan Report ---
CTA CHEST WITH IV CONTRAST INDICATION: pulmonary embolisim 100 ML OMNI 350 . Shortness of breath TECHNIQUE: Axial CT images were obtained through the chest after injection of 100 cc IV contrast. 3 plane MIP re constructions were produced. All CT scans at this location are performed using CT dose reduction for ALARA by means of automated exposure control. COMPARISON: None available. FINDINGS: PULMONARY ARTERIES: No pulmonary emboli. THORACIC AORTA: No acute abnormality. HEART: Normal. CORONARY ARTERIES: No significant calcification. PLEURA: No pleural effusion. No pneumothorax. LYMPH NODES: No significant adenopathy. LUNGS: Moderate multifocal groundglass streaky parenchymal disease characteristic for atypical Covid bronchopneumonia ADDITIONAL FINDINGS: None. UPPER ABDOMEN: No acute findings. Gallbladder surgically absent. SKELETAL STRUCTURES: No significant osseous abnormality. IMPRESSION: 1. No CT evidence for pulmonary embolism. 2. Moderate bilateral pneumonia likely secondary to Covid infection. Please confirm with Pradeep palacios Signer Name: Misha Brito MD Signed: 11/23/2020 5:36 PM Workstation Name: [id number]
[2020-11-23] MEDS: ASCORBIC ACID 500 MG TAB PO SCH (17:57)
[2020-11-23] MEDS: PANTOPRAZOLE 20 MG TAB PO SCH (17:57)
[2020-11-23] MEDS: CHOLECALCIFEROL (VIT D3) 1000 UNIT (25 mcg) TAB PO SCH (17:57)
[2020-11-23] MEDS: ZINC SULFATE 220 MG CAP PO SCH (17:57)
[2020-11-23] MEDS: dexAMETHasone 4 MG/ML VIAL IV SCH (17:58)
[2020-11-23] MEDS: ENOXAPARIN 40 MG/0.4 ML INJ SUB-Q SCH (17:58)
[2020-11-23] MEDS: SENNOSIDES 8.6 MG TAB PO SCH ×2 (17:59→22:39)
[2020-11-23] MEDS: REMDESIVIR 100 MG in SODIUM CHLORIDE 0.9% 250ML 250 ML IV SCH (22:39)
[2020-11-23] MEDS: SODIUM CHLORIDE 0.9% 50 ML IVPB IV SCH (22:40)
[2020-11-23] MEDS: guaiFENesin DM 200/20 MG ORAL LIQD 10 ML PO PRN (22:56)
[2020-11-23] MEDS: HYDROcodone/ACETAMINOPHEN 5-325 MG TAB PO PRN (22:56)
[2020-11-24] MEDS: IPRATROPIUM/ALBUTEROL SULFATE 3 ML AMPUL.NEB IH SCH (02:39)
[2020-11-24 06:11] VITALS: BP 139/63
[2020-11-24] MEDS: guaiFENesin DM 200/20 MG ORAL LIQD 10 ML PO PRN (06:17)
[2020-11-24] MEDS: HYDROcodone/HOMATROPINE 5-1.5MG /5 ML ORAL LIQD UNIT DOSE PO PRN (09:53)
[2020-11-24] MEDS: ENOXAPARIN 40 MG/0.4 ML INJ SUB-Q SCH (09:54)
[2020-11-24] MEDS: SENNOSIDES 8.6 MG TAB PO SCH (09:54)
[2020-11-24] MEDS: PANTOPRAZOLE 20 MG TAB PO SCH (09:55)
[2020-11-24] MEDS: ASCORBIC ACID 500 MG TAB PO SCH (09:55)
[2020-11-24] MEDS: dexAMETHasone 4 MG/ML VIAL IV SCH (09:55)
[2020-11-24] MEDS: CHOLECALCIFEROL (VIT D3) 1000 UNIT (25 mcg) TAB PO SCH (09:55)
[2020-11-24] MEDS: ZINC SULFATE 220 MG CAP PO SCH (09:56)
--- NOTE | 2020-11-24 10:54 | Discharge Summary ---
Providers - Providers Date of Admission: 11/22/20 12:16 Attending physician: ETHAN MCCORMACK MD 11/19/20 01:30 Consult to Physician [CONS] Routine Comment: Consulting Provider: FRANK ADAMS Physician Instructions: Reason For Exam: PUI 11/22/20 12:11 Physical Therapy Evaluation and Treat [CONS] Routine Comment: Reason For Exam: DEBILITY 11/23/20 03:55 Midline [Consult to PICC Line RN] [CONS] Urgent Reason For Exam: difficult stick Type Line:: Midline Primary care physician: [facility] Hospitalization Reason for admission: Respiratory failure Condition: Stable Hospital course: This is a 65-year-old female who came to ED with shortness of breath and persistent cough. Patient has a history of hypertension. Patient reported her son has Covid and is in this hospital intubated in the ICU. she said she started having fever, headache, cough, shortness of breath, vomiting, diarrhea, loss of smell and taste. Patient said she did not receive COVID-19 vaccine. O2 sat 89% on room air. Hospital medicine was asked to admit patient for PUI. ID consulted. Reviewed patient medical record, medication administration, and vital signs. Patient is presently on room air. She reports persistent cough. 11/20: We'll wean down to 2 L of oxygen and monitor oxygen saturation. Home O2 eval in a.m. Continue antitussives medication. Prone positioning if able. Discussed with nursing staff and patient at bedside. Patient's son is currently intubated hospital undergoing management for Covid. Patient unfortunately did not get Covid vaccine. ID consulted to assist with management 11/21: Patient reports significant improvement except for cough otherwise she is doing well. She states that she ambulates with a walker at home. Plan is for her to be discharged with home oxygen and complete her steroids at home also discussed with the ID doctor who is in agreement this patient is currently satting 96% on 2 L. Weight loss counseling recommended to the patient. 11/22: Patient seen and examined this morning but was not discharged yesterday as there was confusion about her oxygen she did not have the walk test done. This morning she was noted to desat into the 80s on room air on exertion. Oxygen was arranged for the patient but the patient reported a worsening cough and dizziness. We will proceed with getting physical therapy due to debility, will hold discharge at this time. Encourage prone positioning if tolerable. Continue oxygen will check orthostatic vitals at this time. We will also increase steroids to 8 mg due to morbid obesity. 11/23: Patient will continue with Remdesivir and steroids, she will get PT/OT today to evaluate safety and if any further exertional dyspnea. she is still requiring oxygen and will be discharged in am with O2. Plan discussed with the patient and she is agreeable with that. 11/24: Patient this morning is improved, cough frequency and intensivty is improved, she ambulated with walker and understands precautions to take at home. CTA of the lung does not demonstrate any pulmonary embolism. It does show bilateral pneumonia. She is to monitor her oxygen level as we discussed in detail. Follow-up with her primary care physician. She requested antibiotics as she states that she had a p.o. weekend p.o. which is definitely going to cost infection. Counseling was provided to her about she was unabated by that. (1) Acute respiratory failure with hypoxia (2) Pneumonia (3) COVID-19 virus infection (4) Hypertension 5] morbid obesity 6] near syncope Disposition: DC/TX-06 HOME UNDER [facility] Final Discharge Diagnosis (Prints w/discharge instructions): Hypoxic respiratory failure secondary to Covid pneumonia Time spent for discharge: 35-minute Core Measure Documentation - Palliative Care Palliative Care/ Comfort Measures: Not Applicable - Core Measures Any of the following diagnoses?: none Exam - Physical Exam Narrative exam: VITAL SIGNS: Reviewed. GENERAL: The patient appears normally developed, morbidly obese,vital signs as documented. HEAD: No signs of head trauma. EYES: Pupils are equal. Extraocular motions intact. EARS: Hearing grossly intact. MOUTH: Oropharynx is normal. NECK: No adenopathy, no JVD. CHEST: Chest with diminished breath sounds bilaterally. No wheezes, rales, or rhonchi. CARDIAC: Regular rate and rhythm. S1 and S2, without murmurs, gallops, or r ubs. VASCULAR: No Edema. Peripheral pulses normal and equal in all extremities. ABDOMEN: Soft, non tender and non distended. No rebound or guarding, and no masses palpated. Bowel Sounds normal. MUSCULOSKELETAL: Good range of motion of all major joints. Extremities without clubbing, cyanosis or edema. NEUROLOGIC EXAM: Alert and oriented x 3 No focal sensory or strength deficits. Speech normal and able to complete full sentences. Follows commands. PSYCHIATRIC: Mood normal. SKIN: detail exam as documented in skin assessment - Constitutional Vitals: Temp Pulse Resp BP Pulse Ox 98.0 F 72 20 139/63 98 11/24/20 06:07 11/24/20 06:07 11/24/20 06:07 11/24/20 06:07 11/24/20 06:07 Plan Activity: advance as tolerated, fall precautions Diet: low fat Special Instructions: record daily weights, record daily BP diary Plan of Treatment: Continue to use incentive spirometer at home. Patient should keep a daily pulse oximeter diary. Return to ER if oxygen saturation is less than 90% Continue mask use and social distancing per state and CDC protocol Follow up with: FRANK ADAMS MD [Staff Physician] - 7 Days MINNETONKA EVONNE PARSONS MD [Primary Care Provider] - 3-5 Days Prescriptions: Amoxicillin/Potassium Clav [Augmentin 875-125 Tablet] 1 each PO BID #6 tablet dexAMETHasone [Dexamethasone] 8 mg PO DAILY #16 tablet Ipratropium/Albuterol Sulfate [DUONEB *Not for PRN Use*] 1 ampul IH Q6HRT #90 ampul.neb guaiFENesin DM [Guaifenesin Dm Syrup] 20 ml PO Q4H PRN 10 Days oral.liqd PRN Reason: Cough HYDROcodone/HOMATROP 5-1.5 [HYDROcodone-Homatropin 5-1.5 mg per 5 ML] 10 ml PO Q6H PRN 10 Days udc PRN Reason: Cough oxyCODONE /ACETAMINOPHEN [Percocet 5/325] 1 tab PO Q6HR PRN #10 tablet PRN Reason: Pain Albuterol Mdi (or & Nicu Only) [ProAir HFA Inhaler] 2 puff IH QID PRN #8.5 gram PRN Reason: Shortness Of Breath Ascorbic Acid [Vitamin C] 500 mg PO QDAY #30 tablet Cholecalciferol Vit D3 [Vitamin D3 1,000 UNIT TAB] 1,000 unit PO QDAY #30 tablet Zinc Sulfate 220 mg PO QDAY #30 capsule Other Discharge Orders: Nebulizer (Amb) Location: None Selected
--- NOTE | 2020-11-24 10:55 | Progress Note ---
Assessment and Plan Cultures: SARS CoV2 PCR: Positive Blood culture in process A/P: 65-year-old female admitted as COVID-19 PUI, unvaccinated: #Bilateral pneumonia #Covid pneumonia #Acute hypoxic respiratory failure: On nasal cannula Recs: IV/PO Dexamethasone 6 mg daily x 10 days Completed empiric antibiotics Complete 5 days Remdesivir Given highly elevated procalcitonin, not likely a candidate for Actemra prophylactic anticoagulation based on d-dimer per hospital protocol trend ferritin, LDH, d-dimer, CRP every 2-3 days for risk stratification and to assess disease progression OK for DC prior to completing remdesivir course if otherwise stable. Recommend 6MWT prior to DC Romina Rubin MD [facility] O: [phone] F: [phone] Subjective Date of service: 11/24/20 Interval history: Afebrile, normal white count. No acute issues. Objective - Exam Narrative Exam: Physical exam deferred to reduce risk of transmission of COVID-19. Please refer to primary team's note. - Constitutional Vitals: Vital Signs Temp Pulse Resp BP Pulse Ox 98.0 F 72 20 139/63 98 11/24/20 06:07 11/24/20 06:07 11/24/20 06:07 11/24/20 06:07 11/24/20 06:07 Temperature -Last 24 Hours Temperature 98.0 F Temperature 97.5 F - Labs CBC & Chem 7: 11/20/20 05:39 11/23/20 07:25
== END 2020-11-24 12:20 | disposition home health service (06) | DRG 177 ==
LOC: ED 21:59 → 3A 11-19 00:34 → OBSVTOIN 11-22 12:16
PROVIDERS: ADMIT Hospitalist; ATTEND Internal Medicine
PROC: XW033E5 Introduction of Remdesivir Anti-infective into Peripheral Vein, Percutaneous Approach, New Technology Group 5 (ICD-10-PCS; principal; 2020-11-21)
PROC: 06HY33Z Insertion of Infusion Device into Lower Vein, Percutaneous Approach (ICD-10-PCS; 2020-11-23)
DX: U07.1 COVID-19 (principal); J96.01 Acute respiratory failure with hypoxia; J12.82 Pneumonia due to coronavirus disease 2019; I10 Essential (primary) hypertension; E66.01 Morbid (severe) obesity due to excess calories; Z90.49 Acquired absence of other specified parts of digestive tract; Z90.710 Acquired absence of both cervix and uterus; Z79.82 Long term (current) use of aspirin; Z88.8 Allergy status to other drugs, medicaments and biological substances; Z79.899 Other long term (current) drug therapy; Z79.891 Long term (current) use of opiate analgesic; Z79.01 Long term (current) use of anticoagulants
CPT/HCPCS: 36415; 71045; 71275; 80048; 80053; 80076; 82140; 82728; 83036; 83615; 84145; 85025; 85379; 86140; 87040; 94640; 94644; 99291; G0378; J0456; J0696; J1100; J1650; J1940; J2270; J7030; J7050; J8540; Q9967; U0003

== ENCOUNTER 2020-12-31 21:20 | Emergency (ER) | payer SELFPAY ==
[2020-12-31 23:01] VITALS: BP 164/81
--- NOTE | 2021-01-01 04:36 | XRay Report ---
CHEST 2 VIEWS INDICATION / CLINICAL INFORMATION: reports sob, covid 3 weeks ago. COMPARISON: 11/21/2020 FINDINGS: SUPPORT DEVICES: None. HEART / MEDIASTINUM: No significant abnormality. LUNGS / PLEURA: Bilateral perihilar opacities appear improved however some opacities persist No pneum othorax. Signer Name: Nitish Chu MD Signed: 01/01/2021 4:32 AM Workstation Name: [id number]
[2021-01-01 04:53] LABS: Basophils % (Auto) 0.7 % (0.0-1.8); Eosinophils # (Auto) 0.1 K/mm3 (0.0-0.4); Eosinophils % (Auto) 1.1 % (0.0-4.3); Hematocrit 42.6 % (30.3-42.9); Hemoglobin 14.2 gm/dl (10.1-14.3); Lymphocytes # (Auto) 1.4 K/mm3 (1.2-5.4); Lymphocytes % (Auto) 19.7 % (13.4-35.0); Mean Corpuscular HGB Conc 33 % (30-34); Mean Corpuscular Volume 93 fl (79-97); Monocytes # (Auto) 0.6 K/mm3 (0.0-0.8); Monocytes % (Auto) 9.2 % (0.0-7.3); Platelet Count 245 K/mm3 (140-440); Red Blood Count 4.59 M/mm3 (3.65-5.03); Red Cell Distribution Width 19.6 % (13.2-15.2)
[2021-01-01 05:01] LABS: INR 0.97 (0.87-1.13)
[2021-01-01 05:06] LABS: Blood Urea Nitrogen 12 mg/dL (7-17); Hemolysis Index 5
[2021-01-01 05:08] LABS: BUN/Creatinine Ratio 24
[2021-01-01 08:29] LABS: Bacteria,Urine 1+ /HPF (Negative); Bilirubin,Urine NEG (Negative); Blood,Urine NEG (Negative); Color,Urine Yellow (Yellow); Hyaline Casts,Urine 18 /LPF; Urobilinogen,Urine < 2.0 mg/dL (<2.0)
--- NOTE | 2021-01-01 08:47 | Emergency Department Report ---
ED General Adult HPI - General Chief complaint: Dyspnea/Respdistress Stated complaint: TRISTIAN, BACK PAIN Time Seen by Provider: 01/01/21 07:25 Source: patient, family Mode of arrival: Wheelchair Limitations: No Limitations - History of Present Illness Initial comments: 65-year-old female, history of COVID-19, presents to ED for evaluation. Patient was admitted for COVID-19 pneumonia and discharged with home O2 approximately 1 month ago. Patient's son also had COVID-19 and from it. She reports that his was on yesterday. Patient reports after she came home from a she started feeling bad again, "like when I had Covid." She reports some continued shortness of breath. Patient states she is trying to wean herself off of the oxygen, because she does not want to be on it for prolonged period of time. Patient is also complaining of some lower back pain, along with urinary frequency. Patient states she walks with a walker due to issues with her hip. She denies any difficulty with ambulation. She denies any fever, lower extremity weakness or sensory loss. Patient states she may just be feeling bad because she is stressed out due to her son's . She denies any chest pain. Patient evaluated in the acute renal area due to lack of ED beds secondary to nursing shortage and COVID-19 pandemic. -: Last night Location: back Consistency: constant Improves with: rest Worsens with: movement Associated Symptoms: shortness of breath. denies: chest pain, fever/chills, nausea/vomiting, syncope - Related Data Previous Rx's Medication Instructions Recorded Last Taken Type Acetaminophen [Non-Aspirin Extra 500 mg PO Q6HR PRN #30 tablet 11/03/20 Unknown Rx Strength] Metoclopramide [Reglan TAB] 10 mg PO QID PRN #30 tablet 11/03/20 Unknown Rx Omeprazole 20 mg PO QDAY #30 tablet. 11/03/20 Unknown Rx Potassium Chloride [K-Dur] 20 meq PO BID #30 tab 11/03/20 Unknown Rx Albuterol Mdi (or & Nicu Only) 2 puff IH QID PRN #8.5 gram 11/21/20 Unknown Rx [ProAir HFA Inhaler] Ascorbic Acid [Vitamin C] 500 mg PO QDAY #30 tablet 11/21/20 Unknown Rx Cholecalciferol Vit D3 [Vitamin D3 1,000 unit PO QDAY #30 tablet 11/21/20 Unknown Rx 1,000 UNIT TAB] HYDROcodone/HOMATROP 5-1.5 10 ml PO Q6H PRN 10 Days udc 11/21/20 Unknown Rx [HYDROcodone-Homatropin 5-1.5 mg per 5 ML] Ipratropium/Albuterol Sulfate 1 ampul IH Q6HRT #90 ampul.neb 11/21/20 Unknown Rx [DUONEB *Not for PRN Use*] Zinc Sulfate 220 mg PO QDAY #30 capsule 11/21/20 Unknown Rx dexAMETHasone [Dexamethasone] 8 mg PO DAILY #16 tablet 11/21/20 Unknown Rx guaiFENesin DM [Guaifenesin Dm 20 ml PO Q4H PRN 10 Days oral.liqd 11/21/20 Unknown Rx Syrup] oxyCODONE /ACETAMINOPHEN [Percocet 1 tab PO Q6HR PRN #10 tablet 11/21/20 Unknown Rx 5/325] Amoxicillin/Potassium Clav 1 each PO BID #6 tablet 11/24/20 Unknown Rx [Augmentin 875-125 Tablet] Allergies Allergy/AdvReac Type Severity Reaction Status Date / Time LEONA Inhibitors AdvReac Unknown Verified 11/18/20 22:32 ED Review of Systems ROS: Stated complaint: TRISTIAN, BACK PAIN Other details as noted in HPI Comment: All other systems reviewed and negative Constitutional: denies: chills, fever Respiratory: shortness of breath Cardiovascular: denies: chest pain Genitourinary: frequency Musculoskeletal: back pain Neurological: denies: weakness, numbness, paresthesias ED Past Medical Hx - Past Medical History Previous Medical History?: Yes Hx Hypertension: Yes Hx Heart Attack/AMI: No Hx Congestive Heart Failure: No Hx Diabetes: No Hx Deep Vein Thrombosis: No Hx Pulmonary Embolism: No Hx Renal Disease: No Hx Sickle Cell Disease: No Hx Kidney Stones: No Hx Asthma: No Hx COPD: No Hx Tuberculosis: No Hx HIV: No - Surgical History Hx Coronary Stent: No Hx Open Heart Surgery: No Hx Pacemaker: No Hx Internal Defibrillator: No Hx Cholecystectomy: No Hx Appendectomy: No Hx Breast Surgery: No - Social History Smoking Status: Never Smoker - Medications Home Medications: Home Medications Medication Instructions Recorded Confirmed Last Taken Type Acetaminophen [Non-Aspirin Extra 500 mg PO Q6HR PRN #30 tablet 11/03/20 11/21/20 Unknown Rx Strength] Metoclopramide [Reglan TAB] 10 mg PO QID PRN #30 tablet 11/03/20 11/21/20 Unkn own Rx Omeprazole 20 mg PO QDAY #30 tablet. 11/03/20 11/21/20 Unknown Rx Potassium Chloride [K-Dur] 20 meq PO BID #30 tab 11/03/20 11/21/20 Unknown Rx Albuterol Mdi (or & Nicu Only) 2 puff IH QID PRN #8.5 gram 11/21/20 Unknown Rx [ProAir HFA Inhaler] Ascorbic Acid [Vitamin C] 500 mg PO QDAY #30 tablet 11/21/20 Unknown Rx Cholecalciferol Vit D3 [Vitamin D3 1,000 unit PO QDAY #30 tablet 11/21/20 Unknown Rx 1,000 UNIT TAB] HYDROcodone/HOMATROP 5-1.5 10 ml PO Q6H PRN 10 Days udc 11/21/20 Unknown Rx [HYDROcodone-Homatropin 5-1.5 mg per 5 ML] Ipratropium/Albuterol Sulfate 1 ampul IH Q6HRT #90 ampul.neb 11/21/20 Unknown Rx [DUONEB *Not for PRN Use*] Zinc Sulfate 220 mg PO QDAY #30 capsule 11/21/20 Unknown Rx dexAMETHasone [Dexamethasone] 8 mg PO DAILY #16 tablet 11/21/20 Unknown Rx guaiFENesin DM [Guaifenesin Dm 20 ml PO Q4H PRN 10 Days oral.liqd 11/21/20 Unknown Rx Syrup] oxyCODONE /ACETAMINOPHEN [Percocet 1 tab PO Q6HR PRN #10 tablet 11/21/20 Unknown Rx 5/325] Amoxicillin/Potassium Clav 1 each PO BID #6 tablet 11/24/20 Unknown Rx [Augmentin 875-125 Tablet] ED Physical Exam - General Limitations: No Limitations General appearance: alert, in no apparent distress, obese - Head Head exam: Present: atraumatic, normocephalic - Eye Eye exam: Present: normal appearance, EOMI - ENT ENT exam: Present: mucous membranes moist - Neck Neck exam: Present: normal inspection - Respiratory Respiratory exam: Present: normal lung sounds bilaterally. Absent: respiratory distress - Cardiovascular Cardiovascular Exam: Present: regular rate, normal rhythm - GI/Abdominal GI/Abdominal exam: Present: soft, tenderness (Suprapubic). Absent: distended - Extremities Exam Extremities exam: Present: normal inspection - Back Exam Back exam: Present: paraspinal tenderness (Bilateral). Absent: CVA tenderness (R), CVA tenderness (L) - Neurological Exam Neurological exam: Present: alert, oriented X3 - Psychiatric Psychiatric exam: Present: normal affect, normal mood - Skin Skin exam: Present: warm, dry, intact, normal color ED Course Vital Signs 12/31/20 23:00 Temperature 98.3 F Pulse Rate 103 H Respiratory 18 Rate Blood Pressure 164/81 [Right] O2 Sat by Pulse 97 Oximetry - Reevaluation(s) Reevaluation #1: 01/01/21 08:43 Urine is still pending, however, patient states she wants to leave AMA. States she does not want to wait any longer because she has been here too long already. Patient understands risks of leaving, including , undiagnosed condition or infection. AMA form signed. Patient advised to follow-up with her PCP or return to ED for any further issues. ED Medical Decision Making - Lab Data Result diagrams: 01/01/21 04:25 01/01/21 04:25 - Radiology Data Radiology results: report reviewed, image reviewed - Medical Decision Making Patient left prior to completion of work-up. AMA form was signed. Risks of leaving discussed with patient, which includes , undiagnosed infection or c ondition. Patient understands and has full decisional capacity. She is A&O x3. Patient states she is ready to go, does not want to stay here any longer. Outpatient follow-up advised, return precautions given. Critical care attestation.: If time is entered above; I have spent that time in minutes in the direct care of this critically ill patient, excluding procedure time. ED Disposition Clinical Impression: Back pain, Shortness of breath Disposition: LEFT AGAINST MEDICAL ADVICE Is pt being admited?: No Condition: Stable Referrals: PRIMARY CARE, [Primary Care Provider] - 3-5 Days Time of Disposition: 08:58
== END 2021-01-01 08:48 | disposition left against medical advice (07) ==
LOC: ED 21:20
DX: M54.9 Dorsalgia, unspecified (principal); R06.02 Shortness of breath; I10 Essential (primary) hypertension; Z88.8 Allergy status to other drugs, medicaments and biological substances; Z79.899 Other long term (current) drug therapy
CPT/HCPCS: 36415; 71046; 80048; 81001; 85025; 85610